=== PATIENT | female | born 1995 | race Two or more races ===

== ENCOUNTER 2024-03-15 12:22 | Inpatient (IN) | payer MEDICAID, SELFPAY ==
[2024-03-15] VITALS (16 sets, daily range): BP systolic 88–116; BP diastolic 48–73; PULSE 69–128; RESP 13–24; TEMP 36.6–38.8; O2SAT 97–100; BMI 22.6
--- NOTE | 2024-03-15 12:52 | XR_ITS ---
Examination: CT abdomen with intravenous contrast CT pelvis with intravenous contrast 2-D coronal reconstructions 2-D sagittal reconstructions Date and time of exam:March 15, 2024 1455 hours Comparison December 17, 2023 INDICATIONS: Lower abdominal pain with painful urination beginning 2 days ago. CTDI: vol (mGy) 5.92 DLP: (mGycm) 298 Technique: Multiple axial sections of the abdomen and pelvis have been obtained. 64 slice high-resolution scanner used. 3 mm axial sections have been obtained, post intravenous injection 60 cc [id number] 2-D sagittal, coronal reconstructions obtained. Low dose protocols were performed. One or more of the following dose reduction techniques were used; automated exposure control, adjustment of the mA and/or KV according to patient size, use of iterative reconstruction technique. Findings: No focal liver or splenic lesions No gallstones No pancreatic or adrenal mass No renal or ureteral calculi There is mild wall thickening involving the right renal collecting system and right ureter No bowel obstruction Normal appendix Anteverted uterus Hyperemia involving sigmoid colon and rectum Severe thickening of the urinary bladder wall with pronounced cystitis inflammation Osseous structures are intact IMPRESSION: Findings most consistent with right pyelonephritis and severe cystitis Nonspecific colitis involving sigmoid colon, proctitis pattern
[2024-03-15 13:15] LABS: Basophils % (Auto) 0 % (0-2.5); Eosinophils # (Auto) 0.1 Thou/mm3 (0.0-0.5); Eosinophils % (Auto) 0 % (0-10); Hematocrit 36.6 % (36.0-46.0); Immature Granulocytes % (Auto) 1 % (0-0); Immature Granulocytes Auto 0.06 Thou/mm3 (0.00-0.00); Lymphocytes # (Auto) 1.1 Thou/mm3 (1.0-4.8); Lymphocytes % (Auto) 8 % (10-50); Mean Corpuscular HGB Conc 32.8 g/dl (31.0-37.0); Mean Corpuscular Hemoglobin 28.5 pg (25.0-35.0); Mean Corpuscular Volume 87 fL (80-100); Monocytes # (Auto) 0.7 Thou/mm3 (0.0-0.8); Monocytes % (Auto) 5 % (0-12); Neutrophils # (Auto) 11.4 Thou/mm3 (1.8-7.7); Neutrophils % (Auto) 86 % (37-80); Nucleated Red Blood Cell % 0 /100 WBC (0); Platelet Count 395 Thou/mm3 (140-440); RDW Standard Deviation 50.2 fL (36.4-46.3); Red Blood Count 4.21 Miln/mm3 (4.00-5.20); White Blood Count 13.3 Thou/mm3 (3.6-11.0)
--- NOTE | 2024-03-15 13:17 | PD.EDRME ---
Rapid Medical Screening Exam RME Arrival date/time: 03/15/24 12:22 28-year-old female with history of ulcerative colitis presents emergency department complaint of dysuria and lower abdominal pain Chief Complaint: Urogenital-Female Time Seen by Provider: 03/15/24 12:39 Vital signs: Vital Signs Temperature 99.2 F 03/15/24 12:50 Pulse Rate 105 H 03/15/24 12:50 Respiratory Rate 16 03/15/24 12:50 Blood Pressure 106/73 03/15/24 12:50 Pulse Oximetry (%) 99 03/15/24 12:50 Oxygen Delivery Method Room Air 03/15/24 12:50
[2024-03-15 13:27] LABS: Collection Type, Urine Clean Catch; Squamous Epithelial Cell,Urine 0 /hpf (0-5)
[2024-03-15 13:34] LABS: Alanine Aminotransferase 15 U/L (10-49); Albumin, Serum 4.9 gm/dL (3.5-5.0); Albumin/Globulin Ratio 1.5 (1.2-2.2); Alkaline Phosphatase 68 U/L (46-116); Anion Gap 10 (7-16); Aspartate Amino Transferase 18 U/L (0-34); BUN/Creatinine Ratio 13 Ratio (12-20); Bilirubin,Total 0.3 mg/dL (0.3-1.2); Blood Urea Nitrogen 9 mg/dL (9-23); Calcium 9.5 mg/dL (8.3-10.6); Calcium (Corrected) 9.5 mg/dL (8.5-10.1); Carbon Dioxide 24.7 mMol/L (20.0-31.0); Chloride 103 mMol/L (98-107); Creatinine (Component) 0.7 mg/dL (0.6-1.3); Estimated Creatinine Clearance 81.6 mL/min (>60); Globulin 3.3 gm/dL (2.3-3.5); Glucose 116 mg/dL (74-106); Lipase 28 U/L (12-53); Osmolality,Calculated 275 (275-295); Potassium 3.9 mMol/L (3.4-5.1); Sodium 138 mMol/L (136-145); Total Protein 8.2 gm/dL (5.7-8.2); eGFR > 60 See Note
[2024-03-15 13:37] LABS: Lactate (Lactic Acid) 1.2 mMol/L (0.4-2.0)
[2024-03-15 13:48] LABS: HCG Qualitative,Urine Negative
[2024-03-15 13:54] LABS: Bilirubin,Urine Negative (Negative); Blood,Urine 3+ (Negative); Color,Urine Yellow (Lt Yel-Yel); Glucose, Urine Negative (Negative); Ketones,Urine Negative (Negative); Leukocyte Esterase,Urine Positive (Negative); Nitrite,Urine Positive (Negative); PH,Urine 6.5 (5.0-7.0); Protein,Urine 3+ (Neg - Trace); RBC,Urine 640 /hpf (0-3); Specific Gravity,Urine 1.026 (1.001-1.035); Urobilinogen,Urine Negative mg/dL (0.0-1.0); WBC,Urine 3228 /hpf (0-5)
[2024-03-15 13:55] LABS: Clarity,Urine Turbid (Clear/Hazy); Culture Indicated,Urine Yes
[2024-03-15 14:11] LABS: Procalcitonin 0.16 ng/ml (0.0-0.49)
--- NOTE | 2024-03-15 14:46 | PD.EDABDPN ---
ED Abdominal Pain RME/HPI General Chief Complaint: Urogenital-Female Stated complaint: pain, bladder infectionx 2 days Time seen by provider: 03/15/24 12:39 Arrival date/time: 03/15/24 12:22 RME / HPI RME / HPI narrative: 03/15/24 12:22 28-year-old female with history of ulcerative colitis presents emergency department complaint of dysuria and lower abdominal pain DR. AYERS MAIN ED EVALUATION: 28 year old female with history of ulcerative colitis presents to the ED for evaluation of abdominal pain beginning 2 days ago and progressively worsening. Reports the pain initially was located over pelvic area that migrated to the right lower quadrant. Described as a tearing sharp sensation, rating as severe. Accompanied by dysuria, urinary frequency, nausea, and chills. Denies any history of similar pain. Denies fevers, chills, sweats, back pain, vaginal bleeding, vaginal discharge, or hematuria. Patient mentioned in 2017 she underwent a colonoscopy and diagnosed with ulcerative colitis. States after colonoscopy developed an intra-abdominal abscess and underwent exploratory laparotomy with drainage. Patient currently followed by GI Dr. Spaulding and states through the years has also been diagnosed with Crohn's disease. Related Data Home Medications ?Medication ?Instructions ?Recorded ?Confirmed ferrous sulfate 325 mg (65 mg 1 tab PO BID 10/17/21 12/30/23 iron) tablet,delayed release Previous Rx's ?Medication ?Instructions ?Recorded famotidine 20 mg tablet 20 mg PO QDAY #14 tabs 12/21/23 Allergies Allergy/AdvReac Type Severity Reaction Status Date / Time No Known Allergies Allergy Verified 03/15/24 12:23 Review of Systems Review of Systems Narrative Review of Systems: Constitutional: SEE HPI +chills DENIES; Fevers Eyes: DENIES; Loss of vision Head/Ear/Nose: DENIES; Loss of hearing Throat: DENIES; Dysphagia Cardiovascular: DENIES; Chest pain, dyspnea or syncope Respiratory: DENIES; Shortness of breath Gastrointestinal: SEE HPI +abd pain. DENIES; Rectal bleeding or melena. Genitourinary: SEE HPI +urinary frequency, dysuria Musculoskeletal: DENIES; Arthralgia (pain in a joint),; Skin: DENIES; Rash Neurological: DENIES; Loss of function or movement Psychiatric: DENIES; recent major life stressor, emotional problem, illicit drug use or abuse Endocrinology: DENIES; Weight change Hematologic/Lymphatic: DENIES; Abnormal bruising Allergic/Immunologic: DENIES; Urticaria (hives) Past Medical History Past Medical History GASTROINTESTINAL: Positive Gastrointestinal Disorders, Gastrointestinal Bleed, Colitis, Ulcerative Colitis, Irritable Bowel and Crohn's Disease HEMATOLOGIC: Positive Anemia Family History FAMILY HISTORY: Positive Family Respiratory Disorders and Family Cancer Surgical History SURGICAL: Positive Abdominal Surgery and Bowel Surgery Social History SMOKING STATUS: Never smoker SUBSTANCE USE: does not use ED Exam Narrative Physical exam: Physical Exam: General: The vital signs were reviewed. The patient is non-toxic, in no apparent distress and appears healthy with a patent airway, no respiratory distress and has no apparent circulatory problems. Head & Scalp: Normocephalic, atraumatic. Face: Appears normal and is without lesions, deformity. Ears: Left external pinna appears normal. Right external pinna appears normal. Eyes: The sclera is anicteric. No obvious photophobia. The Left and Right Orbit/Lid/Conjunctiva appears normal without swelling, discoloration or injection. Nose: The nose is without deformity, discharge or tenderness; Throat: Appears normal. The mucous membranes are pink and moist without exudates, redness or mass seen. The tongue appears normal. Neck: The neck is supple and no apparent mass or adenopathy. Chest: The chest wall is normal in size and symmetry and has no chest wall tenderness or crepitus. The patient displays normal ventilator effort without retractions, accessory muscle use and has adequate air movement bilaterally with no wheezes and no rales. Cardiovascular: Regular rate and rhythm; No murmurs, rubs, or gallops; Gastrointestinal: The abdomen appears normal. Except midline and central somewhat hypertrophied scar from previous exploratory laparotomy No obvious hernias or mass. The abdomen is lower midline abdominal tenderness. The upper abdomen is soft and benign, non-distended, with no pain, no upper guarding and no rebound tenderness. Bowel sounds are present and normal sounding. No CVA tenderness. Genitourinary: Back/Spine: Nontender normal inspection Extremities/Musculoskeletal/lymphatic: The bilateral upper and lower extremities are warm. There is no evidence of arterial insufficiency. There is no evidence of venous insufficiency/edema. The patient spontaneously moves bilateral upper and lower extremities with no pain and no limitation of movement. There is no apparent, injury or trauma. Skin: The skin is warm, dry and intact. No rashes. No petechia. No purpura. No abnormal bruising. The color is appropriate with no cyanosis. Mental status/Psychiatric: Mental status is appropriate for age. The patient has no apparent delusions, visual hallucinations, no apparent audible hallucinations. The patient has no apparent suicidal thoughts/ideation and no apparent homicidal thoughts/ideation. Neurological: The patient is awake, alert, interactive, cordial, cooperative and is oriented to name and situation. The patient follows commands and answers historical question with no impairment. There is no visual disturbance apparent. The pupils are equal and reactive bilaterally with normal eye movements and no diplopia The bilateral upper and lower extremities have normal strength, normal range of motion and normal functioning. The gait, station and balance appear to be baseline with no acute change Course Quality Measures Current suspected stage: sepsis Possible source: genitourinary Blood cultures ordered: completed in ED Antibiotic ordered: Yes Pertinent labs: 03/15/24 13:33 Lactic Acid 1.2 mMol/L (0.4-2.0) Procalcitonin 0.16 ng/ml (0.0-0.49) sepsis Orders Category Date Time Status CT Screening NOW Care 03/15/24 12:[address] abdomen pelvis w con Stat Exams 03/15/24 12:52 Completed Blood Culture (Lab) Stat Lab 03/15/24 13:28 Received CBC Stat Lab 03/15/24 12:57 Completed Comprehensive Metabolic Panel Stat Lab 03/15/24 12:57 Completed HCG Qualitative,Urine Stat Lab 03/15/24 13:14 Completed Lactate (Lactic Acid) Stat Lab 03/15/24 13:33 Completed Lipase Stat Lab 03/15/24 12:57 Completed Procalcitonin Stat Lab 03/15/24 13:33 Completed UA, C/S IF [Urinalysis, C/S if Indicated] Stat Lab 03/15/24 13:14 Completed Urine Culture Stat Lab 03/15/24 13:14 Received Urine Culture Stat Lab 03/15/24 14:51 Received Acetaminophen Tab [Tylenol ES Tab] Med 03/15/24 16:19 Discontinued 1,000 mg PO X1 ONE Morphine Inj Med 03/15/24 16:19 Discontinued 4 mg IVP X1 ONE Ondansetron Inj [Zofran Inj] Med 03/15/24 16:21 Discontinued 4 mg .ROUTE .STK-MED ONE Ondansetron Inj [Zofran Inj] Med 03/15/24 16:19 Discontinued 4 mg IV X1 ONE Piper/Tazo 3.375 gm [Zosyn] Med 03/15/24 14:49 Discontinued 3.375 gm in 50 ml IV X1 Sodium Chloride 0.9% 1000 ml [Ns] 1,000 ml Med 03/15/24 14:49 Active IV 150 mls/hr Vital Signs Vital signs: Vital Signs Temperature 99.2 F 03/15/24 12:50 Pulse Rate 105 H 03/15/24 12:50 Respiratory Rate 16 03/15/24 12:50 Blood Pressure 106/73 03/15/24 12:50 Pulse Oximetry (%) 99 03/15/24 12:50 Oxygen Delivery Method Room Air 03/15/24 12:50 Pulse ox is 99% on room air which is adequate. Abdominal Pain MDM MDM Narrative MDM Narrative:: Patient presents with 2-day worsening of lower abdominal pain as a history of Crohn's disease with fistula who is tachycardic and has a fever of 100.4. The patient has concerns for abscess or other complications of her Crohn's disease and reveals an obvious urinary tract infection and CT is pending to rule out any abscesses since she does have known fistulous. Because of the intra-abdominal infection possibility having her started on Zosyn first which will also cover the urinary tract infection. Going to start her on Zosyn and IV fluids. Medical workup came back positive for a urine infection and CT scan revealed no evidence of abscess or fistula and if her she has acute pyelonephritis and she does have right CVA tenderness on reevaluation. Because her heart rate was 131 she is having some nausea and systemic signs of infection felt her best to be admitted hydrate and observe overnight. Hospitalist was called and they agreed to admit. Patient data External records reviewed:: [facility] previous records (I reviewed admission from 12/18/2023 through 12/21/2023 ) Clinical information provided by:: patient Social determinants that could affect healthcare access:: none Patient has the following chronic illnesses:: ulcerative colitis, crohn's disease How is presenting disease/condition affected by chronic disease/condition?: exacerbated by Evaluation data The following diagnostics were reviewed and interpreted by me:: lab results and radiology exam(s) Lab and/or radiology exams considered but not ordered:: None Interpretation Summary: Ordering Physician: Neha STAHL)Yohan NP Date of Service: 03/15/24 Procedure(s): CT abdomen pelvis w con Accession Number(s): [id number] cc: Neha STAHL),Yohan SALMON; Skyler Palma MD~ Examination: CT abdomen with intravenous contrast CT pelvis with intravenous contrast 2-D coronal reconstructions 2-D sagittal reconstructions Date and time of exam:March 15, 2024 1455 hours Comparison December 17, 2023 INDICATIONS: Lower abdominal pain with painful urination beginning 2 days ago. CTDI: vol (mGy) 5.92 DLP: (mGycm) 298 Technique: Multiple axial sections of the abdomen and pelvis have been obtained. 64 slice high-resolution scanner used. 3 mm axial sections have been obtained, post intravenous injection 60 cc [id number] 2-D sagittal, coronal reconstructions obtained. Low dose protocols were performed. One or more of the following dose reduction techniques were used; automated exposure control, adjustment of the mA and/or KV according to patient size, use of iterative reconstruction technique. Findings: No focal liver or splenic lesions No gallstones No pancreatic or adrenal mass No renal or ureteral calculi There is mild wall thickening involving the right renal collecting system and right ureter No bowel obstruction Normal appendix Anteverted uterus Hyperemia involving sigmoid colon and rectum Severe thickening of the urinary bladder wall with pronounced cystitis inflammation Osseous structures are intact IMPRESSION: Findings most consistent with right pyelonephritis and severe cystitis Nonspecific colitis involving sigmoid colon, proctitis pattern Dictated By: Skyler Palma MD Signed By: <Electronically signed by Skyler Palma MD in OV> 03/15/24 1520 Medications / Prescriptions Medications or Prescriptions considered but not ordered:: None Medication administrations:: Medication Administration History Sodium Chloride (Ns) 1,000 mls @ 150 mls/hr IV .Q6H40M ONE Stop: 03/15/24 21:28 Last Admin: 03/15/24 15:28 Dose: 150 mls/hr Documented By: KASSIDY Discontinued Medications Acetaminophen (Acetaminophen 500 Mg Tablet) 1,000 mg PO X1 ONE Stop: 03/15/24 16:20 Last Admin: 03/15/24 16:32 Dose: 1,000 mg Documented By: KASSIDY Piperacillin/Tazobactam/Dextrose (Zosyn) 3.375 gm in 50 mls @ 100 mls/hr IV X1 ONE Stop: 03/15/24 15:18 Last Infusion: 03/15/24 16:12 Dose: Infused Documented By: Admin: 03/15/24 15:28 Dose: 100 mls/hr Documented By: KASSIDY Morphine Sulfate (Morphine Sulf Inj 10 Mg/Ml Vial) 4 mg IVP X1 ONE Stop: 03/15/24 16:20 Last Admin: 03/15/24 16:32 Dose: 4 mg Documented By: KASSIDY Ondansetron HCl (Ondansetron Inj 2 Mg/Ml Inj 2 Ml) 4 mg IV X1 ONE; Protocol Stop: 03/15/24 16:20 Last Admin: 03/15/24 16:28 Dose: 4 mg Documented By: KASSIDY Ondansetron HCl (Ondansetron Inj 2 Mg/Ml Inj 2 Ml) Confirm Administered Dose 4 mg .ROUTE .STK-MED ONE Stop: 03/15/24 16:22 Last Admin: 03/15/24 16:36 Dose: Not Given Documented By: KASSIDY Non-Admin Reason: Duplicate Medication on eMAR See above Consultations Consultation(s) initiated? (list below): Yes Consultation #1 (Physician, Specialty, Details): I spoke with hospitalist Dr. Gonzalez. Discussed patients PMHx, HPI, ED course, exam findings, labs, and radiology results. The hospitalist agree to accept the patient for admission. Time: 16:37 Diagnosis Differential diagnosis abdominal pain: abdominal pain, acute appendicitis, calculus of kidney, constipation, diverticulitis, gastroenteritis and pancreatitis Most likely diagnosis given after review of the tests above:: Lower abdominal pain Urinary tract infection Acute Crohn's disease with fistula Admission Indicated Admission indicated?: indicated Admission Request Was there a request for admission?: Yes Admission Attestation Admission request attestation: Discussed case with [] from Hospitalist service regarding admission. Discussed patients ED course, exam findings, labs, and radiology results. The Hospitalist [agrees,declines] to accept the patient for admission. Disposition Plan Disposition Plan: Admit Discharge Plan Plan Patient Disposition: Admit Acute Care w/in Hospital Disposition Comment: Hospitalist admit Prescriptions/Referrals Prescriptions/Med Rec: No Action ferrous sulfate 325 mg (65 mg iron) tablet,delayed release (DR/EC) 1 tab PO BID Patient Comments: TAKE 1 TABLET BY MOUTH TWICE A DAY FOR 90 DAYS famotidine 20 mg tablet 20 mg PO QDAY Qty: 14 0RF Problem List Clinical Impression: Acute pyelonephritis, Lower abdominal pain, Urinary tract infection, Acute Crohn's disease with fistula, Sinus tachycardia Patient/Caregiver Discharge Instructions Print Language: Malian Stand Alone Forms: [facility] Award Info., Patient Portal Info Letter
[2024-03-15] MEDS: PIPER/TAZO 3.375 GM 3.375 GM/50 ML BAG IV (15:28)
[2024-03-15] MEDS: SODIUM CHLORIDE 0.9% 1000 ML 1,000 ML 150 ML IV (15:28)
[2024-03-15] MEDS: ONDANSETRON INJ 2 MG/ML INJ 2 ML 4 MG IV (16:28)
[2024-03-15] MEDS: ACETAMINOPHEN 500 MG TABLET 1000 MG PO (16:32)
[2024-03-15] MEDS: MORPHINE SULF INJ 10 MG/ML VIAL 4 MG IVP (16:32)
[2024-03-15] MEDS: RINGERS LACTATED 1000 ML 1,000 ML 999 ML IV (19:05)
[2024-03-15] MEDS: cefTRIAXone/D5w 1gm IV premix 50 ML IV (19:05)
--- NOTE | 2024-03-15 19:44 | PD.RESHP ---
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 She reported fever that was subjective, mild chills, and nausea. However, she denied any lightheadedness, headache, chest pain, short throat, SOB, any changes in bowel movement. In the ED, her vitals were significant for pulse 105, saturating 99% on room air. Labs were significant for white count 13.3, blood sugar 116 with UA revealing turbid urine, protein 3+, blood 3+, nitrate positive, leukocyte Estrace positive, RBC [address] abdomen/pelvis was significant for right pyelonephritis and severe cystitis. Patient received 1 L of IV bolus fluid, Zosyn, Tylenol thousand Mg, and underwent center on 4 Mg IV x 1 and was admitted to MedSurg unit for further management of complicated UTI. PMH: As mentioned above PSHX: As mentioned above Allergies: No known allergies Social history: Denies alcohol, illicit drug use or smoking Medications: To be reconciled Review of Systems Review of Systems Systems Reviewed: All systems reviewed, normal except as documented Exam Vital Signs Temp Pulse Resp BP Pulse Ox O2 Del Method 99.3 F 128 H 18 116/70 99 Room Air 03/15/24 18:02 03/15/24 16:00 03/15/24 16:00 03/15/24 16:00 03/15/24 16:00 03/15/24 16:00 Narrative Exam General: Young, cooperative no acute distress, Alert and Oriented x 3 HEENT: Mildly dry mucous membranes, oropharynx clear Neck: Supple, No masses, No JVD CVS: S1S2 Regular rate and rhythm, No murmurs, rubs or gallops Lungs: Clear to auscultation with no accessory use, no wheeze no rhonchi Abd: Soft, mild suprapubic tenderness/ND, +BS, no organomegaly, right costorenal angle tenderness present Ext: No edema, warm and well perfused Skin: No rash Psych: Appropriate mood and affect Results: Labs 03/16/24 04:40 03/16/24 04:40 Labs: Short CBC 03/15/24 Range/Units 12:57 WBC 13.3 H (3.6-11.0) Thou/mm3 Hgb 12.0 (12.0-16.0) g/dL Hct 36.6 (36.0-46.0) % Plt Count 395 (140-440) Thou/mm3 BMP 03/15/24 12:57 Sodium 138 Potassium 3.9 Chloride 103 Carbon Dioxide 24.7 BUN 9 Creatinine 0.7 Glucose 116 H Calcium 9.5 Liver Function 03/15/24 Range/Units 12:57 Total Bilirubin 0.3 (0.3-1.2) mg/dL AST 18 (0-34) U/L ALT 15 (10-49) U/L Alkaline Phosphatase 68 (46-116) U/L Albumin 4.9 (3.5-5.0) gm/dL Urine 03/15/24 Range/Units 13:14 Urine Color Yellow (Lt Yel-Yel) Urine Clarity Turbid A (Clear/Hazy) Urine pH 6.5 (5.0-7.0) Ur Specific Mercedes 1.026 (1.001-1.035) Urine Protein 3+ A (Neg - Trace) Urine Glucose (UA) Negative (Negative) Quality Measures Quality Measures sepsis Current suspected stage: ruled out Possible source: genitourinary Blood cultures ordered: completed in ED Antibiotic ordered: Yes Medications Home Medications and Allergies Home Medications ?Medication ?Instructions ?Recorded ?Confirmed ?Type ferrous sulfate 325 mg (65 mg 1 tab PO BID 10/17/21 12/30/23 History iron) tablet,delayed release Allergies Allergy/AdvReac Type Severity Reaction Status Date / Time No Known Allergies Allergy Verified 03/15/24 12:23 Visit Medications Acetaminophen (Acetaminophen 325 Mg Tablet) 650 mg PO Q6H PRN PRN Reason: Fever >101.5 Stop: 04/14/24 18:11 Hydrocodone Bitart/Acetaminophen (Hydrocodone/Apap 5/325 Tablet) 1 tab PO Q4HR PRN PRN Reason: PAIN SCALE 4-6 (Moderate Stop: 03/20/24 18:11 Enoxaparin Sodium (Enoxaparin Sod Inj 40 Mg/0.4 Ml Syringe) 40 mg SC QDAY [facility] Stop: 03/30/24 08:59 Sodium Chloride (Ns) 1,000 mls @ 150 mls/hr IV .Q6H40M ONE Stop: 03/15/24 21:28 Last Admin: 03/15/24 15:28 Dose: 150 mls/hr Ceftriaxone Sodium/Dextrose (Rocephin/D5w 1gm Iv Premix) 50 mls @ 100 mls/hr IV QDAY@1830 [place] Stop: 03/22/24 18:29 Last Admin: 03/15/24 19:05 Dose: 100 mls/hr Ondansetron HCl (Ondansetron Inj 2 Mg/Ml Inj 2 Ml) 4 mg IV Q6H PRN; Protocol PRN Reason: NAUSEA OR VOMITING Stop: 04/14/24 18:11 Discontinued Medications Acetaminophen (Acetaminophen 500 Mg Tablet) 1,000 mg PO X1 ONE Stop: 03/15/24 16:20 Last Admin: 03/15/24 16:32 Dose: 1,000 mg Piperacillin/Tazobactam/Dextrose (Zosyn) 3.375 gm in 50 mls @ 100 mls/hr IV X1 ONE Stop: 03/15/24 15:18 Last Infusion: 03/15/24 16:12 Dose: Infused Lactated Ringer's (Lactated Ringers) 1,000 mls @ 999 mls/hr IV .Q1H1M ONE Stop: 03/15/24 19:19 Last Admin: 03/15/24 19:05 Dose: 999 mls/hr Morphine Sulfate (Morphine Sulf Inj 10 Mg/Ml Vial) 4 mg IVP X1 ONE Stop: 03/15/24 16:20 Last Admin: 03/15/24 16:32 Dose: 4 mg Ondansetron HCl (Ondansetron Inj 2 Mg/Ml Inj 2 Ml) 4 mg IV X1 ONE; Protocol Stop: 03/15/24 16:20 Last Admin: 03/15/24 16:28 Dose: 4 mg Assessment & Plan Plan Patient is a 28-year-old female with significant past medical history of IBS, 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 #Complicated UTI/right pyelonephritis The patient presented with chief complaint of suprapubic pain, burning and frequent urination for past 1 day, associated with subjective fever, mild chills and nausea. UA revealing turbid urine, protein 3+, blood 3+, nitrate positive, leukocyte Estrace positive, RBC [address] abdomen/pelvis was significant for right pyelonephritis and severe cystitis -Started on ceftriaxone 1 g daily, previous urine cultures were pansensitive, with positive sensitivity with ceftriaxone -Urine culture ordered -Oral hydration -Pain medications as appropriate #Crohn's disease #History of IBS Patient is not aware of what medicines he is taking currently -We will reconcile home medications #Coccidiomycosis serology positive The patient serology was positive for coccidiomycosis on 12/19/2023 -Reconcile home medications #History of iron deficiency anemia -We will consider starting the patient on oral iron Health maintenance: Dispo: Patient admitted to MedSurg unit for further management of complicated UTI/right pyelonephritis DVT prophylaxis: Lovenox Diet: Regular diet CODE STATUS: Full code The patient's management plan was discussed with my attending physician MD Karlo Amaya MD, PGY2 Attending Provider Attestation/Addendum 28-year-old female with irritable bowel syndrome, Crohn's disease, iron deficiency anemia was admitted for pyelonephrits. Patient has flank pain abnormal urinalysis and abnormal CT scan findings suggestive of pyelonephritis. Patient will receive IV antibiotic treatment Follow culture results. Discussed with housestaff.
[2024-03-16] VITALS (12 sets, daily range): BP systolic 85–103; BP diastolic 54–64; PULSE 60–92; RESP 14–24; TEMP 36.3–37.2; O2SAT 95–100; BMI 23.1
[2024-03-16] MEDS: HYDROcodone/APAP 5/325 TABLET 1 TAB PO ×2 (03:44→22:11)
[2024-03-16 05:28] LABS: Basophils # (Auto) 0.1 Thou/mm3 (0.0-0.2); Basophils % (Auto) 1 % (0-2.5); Eosinophils # (Auto) 0.1 Thou/mm3 (0.0-0.5); Eosinophils % (Auto) 1 % (0-10); Hematocrit 30.4 % (36.0-46.0); Hemoglobin 10.1 g/dL (12.0-16.0); Immature Granulocytes % (Auto) 0 % (0-0); Immature Granulocytes Auto 0.02 Thou/mm3 (0.00-0.00); Lymphocytes # (Auto) 1.3 Thou/mm3 (1.0-4.8); Lymphocytes % (Auto) 13 % (10-50); Mean Corpuscular HGB Conc 33.2 g/dl (31.0-37.0); Mean Corpuscular Hemoglobin 28.9 pg (25.0-35.0); Mean Corpuscular Volume 87 fL (80-100); Monocytes # (Auto) 0.8 Thou/mm3 (0.0-0.8); Monocytes % (Auto) 8 % (0-12); Neutrophils # (Auto) 8.4 Thou/mm3 (1.8-7.7); Neutrophils % (Auto) 79 % (37-80); Nucleated Red Blood Cell % 0 /100 WBC (0); Platelet Count 338 Thou/mm3 (140-440); White Blood Count 10.7 Thou/mm3 (3.6-11.0)
[2024-03-16 05:54] LABS: Anion Gap 9 (7-16); BUN/Creatinine Ratio 10 Ratio (12-20); Blood Urea Nitrogen < 5 mg/dL (9-23); Calcium 8.6 mg/dL (8.3-10.6); Carbon Dioxide 23.5 mMol/L (20.0-31.0); Cardiac Risk Estimate 2.5 RATIO (3.7-5.6); Chloride 105 mMol/L (98-107); Cholesterol 117 mg/dL (132-200); Creatinine (Component) 0.5 mg/dL (0.6-1.3); Estimated Creatinine Clearance 114.2 mL/min (>60); Glucose 103 mg/dL (74-106); HDL Cholesterol 47 mg/dL (40-60); LDL Cholesterol,Calculated 50 mg/dL (0-130); Magnesium 1.8 mg/dL (1.6-2.6); Osmolality,Calculated 271 (275-295); Phosphorous 3.1 mg/dL (2.4-5.1); Potassium 3.5 mMol/L (3.4-5.1); Sodium 137 mMol/L (136-145); Thyroid Stimulating Hormone 0.68 uIU/mL (0.55-4.78); Triglycerides 98 mg/dL (30-150); eGFR > 60 See Note
--- NOTE | 2024-03-16 08:00 | PC.NURSE ---
FOOD TRAY AT BEDSIDE
--- NOTE | 2024-03-16 10:43 | PC.NURSE ---
REPORT GIVEN TO GARY ON MED/SURG FLOOR. PT TO GO TO ROOM 311
--- NOTE | 2024-03-16 11:15 | ESPR_ITS ---
Documentation for date of: 03/16/24 Subjective Subjective Interval history: Patient was seen at bedside this morning. No overnight events. Patient did have a fever yesterday around 4 PM, and since has not had any other fevers. WBCs have down trended. Urine cultures are still pending. Will continue with ceftriaxone for now. Exam Vital Signs Temp Pulse Resp BP Pulse Ox O2 Del Method 98.6 F 90 18 95/54 L 98 Room Air 03/16/24 10:15 03/16/24 10:15 03/16/24 10:15 03/16/24 10:15 03/16/24 10:15 03/16/24 10:15 Narrative Exam General: A/O x3, no acute distress, well-nourished, well-developed Eyes: PERRL, EOMI. Anicteric, vision grossly intact. Ears: No ear pain, no ear discharge, Hearing grossly intact. Nose: No nasal discharge. Mouth/Throat: Moist mucous membranes, no redness, no lesions. Neck: Neck supple, non-tender, no cervical lymphadenopathy. Lungs: Clear OLIVIA to auscultation and percussion, No accessory muscle use. Cardio: Normal S1/S2, regular rhythm, no murmurs, no JVD Abdomen: Soft, mildly tender in lower abdomen, no palpable masses, peristalsis present, no guarding or rebound. Extremities: Symmetrical, no significant deformities, no peripheral edema , non-tender, peripheral pulses presents. Skin: No rashes, no lesions, warm to touch. Neuro: No focal neurological deficits. Psych: Cooperative, appropriate mood and effect. Objective Labs 03/16/24 04:40 03/16/24 04:40 Labs: Laboratory Results - last 24 hr 03/15/24 03/15/24 03/15/24 12:57 13:14 13:33 WBC 13.3 H RBC 4.21 Hgb 12.0 Hct 36.6 MCV 87 MCH 28.5 MCHC 32.8 RDW Std Deviation 50.2 H Plt Count 395 Neut % (Auto) 86 H Lymph % (Auto) 8 L [place] % (Auto) 5 Eos % (Auto) 0 Baso % (Auto) 0 Neut # (Auto) 11.4 H Lymph # (Auto) 1.1 [place] # (Auto) 0.7 Eos # (Auto) 0.1 Baso # (Auto) 0.0 Immature Gran # (Auto) 0.06 H Absolute Nucleated RBC 0.00 Immature Gran % 1 H Nucleated RBC % 0 Sodium 138 Potassium 3.9 Chloride 103 Carbon Dioxide 24.7 Anion Gap 10 BUN 9 Creatinine 0.7 Estim Creat Clear Calc 81.6 eGFR > 60 BUN/Creatinine Ratio 13 Glucose 116 H Calculated Osmolality 275 Lactic Acid 1.2 Calcium 9.5 Corrected Calcium 9.5 Phosphorus Magnesium Total Bilirubin 0.3 AST 18 ALT 15 Alkaline Phosphatase 68 Total Protein 8.2 Albumin 4.9 Globulin 3.3 Albumin/Globulin Ratio 1.5 Triglycerides Cholesterol LDL Cholesterol, Calc HDL Cholesterol Cholesterol/HDL Ratio Lipase 28 Procalcitonin 0.16 TSH Ur Collection Type Clean Catch Urine Color Yellow Urine Clarity Turbid A Urine pH 6.5 Ur Specific [place] 1.026 Urine Protein 3+ A Urine Glucose (UA) Negative Urine Ketones Negative Urine Blood 3+ A Urine Nitrite Positive Urine Bilirubin Negative Urine Urobilinogen (Auto) Negative Ur Leukocyte Esterase Positive Urine RBC 640 H Urine WBC 3228 H Ur Squamous Epith Cells 0 Urine Bacteria None Ur Culture Indicated? Yes Urine HCG, Qual Negative 03/16/24 04:40 WBC 10.7 RBC 3.50 L Hgb 10.1 L Hct 30.4 L MCV 87 MCH 28.9 MCHC 33.2 RDW Std Deviation 51.0 H Plt Count 338 D Neut % (Auto) 79 Lymph % (Auto) 13 [place] % (Auto) 8 Eos % (Auto) 1 Baso % (Auto) 1 Neut # (Auto) 8.4 H Lymph # (Auto) 1.3 [place] # (Auto) 0.8 Eos # (Auto) 0.1 Baso # (Auto) 0.1 Immature Gran # (Auto) 0.02 H Absolute Nucleated RBC 0.00 Immature Gran % 0 Nucleated RBC % 0 Sodium 137 Potassium 3.5 Chloride 105 Carbon Dioxide 23.5 Anion Gap 9 BUN < 5 L Creatinine 0.5 L Estim Creat Clear Calc 114.2 eGFR > 60 BUN/Creatinine Ratio 10 L Glucose 103 Calculated Osmolality 271 L Lactic Acid Calcium 8.6 Corrected Calcium Phosphorus 3.1 Magnesium 1.8 Total Bilirubin AST ALT Alkaline Phosphatase Total Protein Albumin Globulin Albumin/Globulin Ratio Triglycerides 98 Cholesterol 117 L LDL Cholesterol, Calc 50 HDL Cholesterol 47 Cholesterol/HDL Ratio 2.5 L Lipase Procalcitonin TSH 0.68 Ur Collection Type Urine Color Urine Clarity Urine pH Ur Specific [place] Urine Protein Urine Glucose (UA) Urine Ketones Urine Blood Urine Nitrite Urine Bilirubin Urine Urobilinogen (Auto) Ur Leukocyte Esterase Urine RBC Urine WBC Ur Squamous Epith Cells Urine Bacteria Ur Culture Indicated? Urine HCG, Qual Quality Measures Quality Measures sepsis Current suspected stage: ruled out Possible source: genitourinary Blood cultures ordered: completed in ED Antibiotic ordered: Yes Assessment & Plan Assessment Current Active Medications: Generic Name Dose Route Start Last Admin Trade Name Freq PRN Reason Stop Dose Admin Acetaminophen 650 mg 03/15/24 18:12 Acetaminophen 325 Mg Tablet PO 04/14/24 18:11 Q6H PRN Fever >101.5 Hydrocodone Bitart/Acetaminophen 1 tab 03/15/24 18:12 03/16/24 03:44 Hydrocodone/Apap 5/325 Tablet PO 03/20/24 18:11 1 tab Q4HR PRN Administration PAIN SCALE 4-6 (Moderate Enoxaparin Sodium 40 mg 03/16/24 09:00 03/16/24 09:45 Enoxaparin Sod Inj 40 Mg/0.4 Ml Syringe SC 03/30/24 08:59 Not Given QDAY GARFIELD Ceftriaxone Sodium/Dextrose 50 mls @ 100 mls/hr 03/15/24 18:30 03/15/24 19:49 Rocephin/D5w 1gm Iv Premix IV 03/22/24 18:29 Infused QDAY@1830 GARFIELD Infusion Ondansetron HCl 4 mg 03/15/24 18:12 Ondansetron Inj 2 Mg/Ml Inj 2 Ml IV 04/14/24 18:11 Q6H PRN NAUSEA OR VOMITING Protocol Plan 28-year-old female with past medical history of Crohn's disease with fistula, coccidiomycosis, iron deficiency anemia, and intra-abdominal abscess s/p laparotomy and drainage was admitted to the hospital on 03/15/2024 due to complicated UTI and right pyelonephritis. #Right pyelonephritis #Complicated UTI #Cystitis ? Patient came in with suprapubic pain, burning sensation with urination and increased urination since 1 day prior to admission ? UA was positive for leukocytes esterase and nitrates, but negative for bacteria ? Blood cultures negative in 24 hours Plan: ? Continue Rocephin 1 g daily [03/15/2024?] ? Pending blood cultures and urine cultures ? Will continue to monitor #Crohn's disease ? Patient takes mesalamine at home ? Will restart mesalamine #Hx of iron deficiency anemia ?patient hemoglobin 10.1 today from 12 on admission ?Most likely hemodilution orally as patient got 2 L of fluid yesterday Plan: ? Will check for hemoglobin less than 7 ? Will continue to monitor Disposition: Patient seen in med surg, pending Urine cx. Continue Rocephin. Diet: regular GI prophylaxis: not indicated DVT prophylaxis: lovenox Code: Full Case disclosed with Attending Dr. Bobo and My senior Dr. Chirinos PGY2. Ino Pleitez PGY1 Senior Resident Attestation The patient is a 28-year-old female with significant past medical history of Crohn's disease with fistula, coccidiomycosis, iron deficiency anemia, and intra-abdominal abscess s/p laparotomy and redness was admitted to hospital on 03/15/2021 with complaint of suprapubic pain, nausea and burning micturition and frequency was found to have complicated UTI/. The patient reported doing well this morning. She reported her suprapubic pain has gone down, and her urinary frequency and burning has improved. She had 1 episode of fever yesterday around 4 PM. Her vitals were fairly stable with stable labs. Will continue the patient on Rocephin 1 g daily, continue to follow-up on urine culture. Blood culture has been so far negative for 24 hours. I discussed with and supervised the director internal communications physician involved in the care of this patient. I personally saw and examined the patient and discussed the assessment and plan with the entire medicine team, including my attending. I agree with the assessment and plan as documented above. Karlo Chirinos MD PGY2 Internal Medicine Attending Provider Attestation/Addendum 28-year-old female who was admitted for pyelonephritis. Patient had febrile episodes. She will continue IV antibiotic treatment. Check urine and blood culture results.
[2024-03-16] MEDS: cefTRIAXone/D5w 1gm IV premix 50 ML IV (17:38)
[2024-03-16] MEDS: MESALAMINE 400 MG CAPSULE.DR 1200 MG PO (20:06)
[2024-03-17] VITALS: BP 93/59; PULSE 65; RESP 18; TEMP 36.2; O2SAT 98
[2024-03-17 04:00] VITALS: BP 90/62; PULSE 60; RESP 18; TEMP 36.3; O2SAT 99
[2024-03-17 06:05] LABS: Basophils # (Auto) 0.1 Thou/mm3 (0.0-0.2); Basophils % (Auto) 1 % (0-2.5); Eosinophils # (Auto) 0.3 Thou/mm3 (0.0-0.5); Eosinophils % (Auto) 4 % (0-10); Hematocrit 33.1 % (36.0-46.0); Hemoglobin 10.8 g/dL (12.0-16.0); Immature Granulocytes % (Auto) 0 % (0-0); Immature Granulocytes Auto 0.03 Thou/mm3 (0.00-0.00); Lymphocytes # (Auto) 1.6 Thou/mm3 (1.0-4.8); Lymphocytes % (Auto) 22 % (10-50); Mean Corpuscular HGB Conc 32.6 g/dl (31.0-37.0); Mean Corpuscular Hemoglobin 28.8 pg (25.0-35.0); Mean Corpuscular Volume 88 fL (80-100); Monocytes # (Auto) 0.6 Thou/mm3 (0.0-0.8); Monocytes % (Auto) 9 % (0-12); Neutrophils # (Auto) 4.6 Thou/mm3 (1.8-7.7); Neutrophils % (Auto) 64 % (37-80); Nucleated Red Blood Cell % 0 /100 WBC (0); Platelet Count 264 Thou/mm3 (140-440); RDW Standard Deviation 50.3 fL (36.4-46.3); Red Blood Count 3.75 Miln/mm3 (4.00-5.20); White Blood Count 7.2 Thou/mm3 (3.6-11.0)
[2024-03-17] MEDS: CIPROFLOXACIN/D5w 400 MG IVPB 400 MG/200 ML BAG 200 MG IV (06:44)
[2024-03-17 06:58] LABS: Anion Gap 10 (7-16); BUN/Creatinine Ratio 7 Ratio (12-20); Blood Urea Nitrogen 5 mg/dL (9-23); Carbon Dioxide 21.9 mMol/L (20.0-31.0); Chloride 105 mMol/L (98-107); Creatinine (Component) 0.7 mg/dL (0.6-1.3); Estimated Creatinine Clearance 88.2 mL/min (>60); Glucose 77 mg/dL (74-106); Magnesium 2.2 mg/dL (1.6-2.6); Osmolality,Calculated 270 (275-295); Phosphorous 4.7 mg/dL (2.4-5.1); Potassium 4.4 mMol/L (3.4-5.1); Sodium 137 mMol/L (136-145); eGFR > 60 See Note
--- NOTE | 2024-03-17 07:19 | PC.NURSE ---
Patient started c/o of localized itching to left forearm. On assessment, arm was swollen and red. Donor denies SOB or any other symptoms. Dr. Goodman notified. to place orders.
[2024-03-17] MEDS: DiphenhydrAMINE 25 MG CAPSULE PO (07:26)
[2024-03-17 07:32] VITALS: BP 90/53; PULSE 67; RESP 16; TEMP 36.2; O2SAT 99
[2024-03-17] MEDS: ENOXAPARIN SOD INJ 40 MG/0.4 ML SYRINGE SC (09:02)
[2024-03-17] MEDS: ceFAZolin/D5W 1 GM IVPB 1 GM/50 ML BAG IV (09:02)
[2024-03-17] MEDS: MESALAMINE 400 MG CAPSULE.DR 1200 MG PO (09:30)
[2024-03-17] MEDS: TRIMETHOPRIM/SULFA 160/800 DS TABLET 1 TAB PO (10:55)
[2024-03-17 11:39] VITALS: BP 89/59; PULSE 90; RESP 17; TEMP 36.6; O2SAT 98
--- NOTE | 2024-03-17 14:29 | ESDS_ITS ---
Planned Discharge Date 03/17/24 DS: Providers Provider Date of admission: 03/15/24 18:12 Primary care physician: Lynda Hernandez PA-C Admitting Provider: Ran Bobo MD Attending Provider on Admission: Ran Bobo MD Attending Provider on DC: Kurt Mcclellan MD Discharging Provider: Kurt Mcclellan MD DS: Diagnosis Problem List Completed Was Problem List Reviewed/Reconciled?: Yes Hospital Course Hospital Course Hospital course: 28-year-old female with past medical history of Crohn's disease with fistula, coccidiomycosis, iron deficiency anemia, and intra-abdominal abscess s/p laparotomy and drainage was admitted to the hospital on 03/15/2024 due to complicated UTI and right pyelonephritis. In the ED patient came in with complaints of abdominal pain as well as dysuria and increased urinary frequency. Initially patient was afebrile and mildly tachycardic. Initial labs were relevant for mild leukocytosis (13.3), and UA was positive for leukocytes esterase and nitrates. Initial imaging included abdomen/pelvis CT which showed right pyelonephritis with severe cystitis. During the patient's hospital stay she was treated with Rocephin until patient's urine cultures came back positive for Proteus Mirabilis which was resistant to Rocephin and patient was given 1 dose of ciprofloxacin, but she had rash develop therefore ciprofloxacin was discontinued and she was given 1 dose of Benadryl. Patient was then placed on Ancef for antibiotic coverage. Patient remained stable without any other fevers and improvement of WBC which are downtrending. Patient blood cultures were negative. At the time of discharge patient was stable enough to be discharged home. Discharge plan: Please follow-up with your primary care physician within 1 week of discharge You have been started on Bactrim for UTI Continue taking all home medications as prescribed Please come back to the ER if symptoms persist or worsen Problems: #Right pyelonephritis #Complicated UTI, Proteus Mirabillis #Cystitis #Crohn's disease #Hx of iron deficiency anemia Case disclosed with Attending Dr. Mcclellan and My senior Dr. Chirinos PGY2. Ino Pleitez PGY1 Senior Resident Attestation: I discussed with and supervised the gallery intern physician involved in the care of this patient. I personally saw and examined the patient and discussed the assessment and plan with the entire medicine team, including my attending. I agree with the discharge plan as documented above. Karlo Chirinos MD PGY2 Internal Medicine Status at Discharge Overall status at discharge: patient is progressing back to baseline Time Spent with Patient Time attestation: Total time spent providing and/or coordinating discharge services:>35 min Exam Vital Signs Temp Pulse Resp BP Pulse Ox O2 Del Method 97.8 F 90 17 89/59 L 98 Room Air 03/17/24 11:39 03/17/24 11:39 03/17/24 11:39 03/17/24 11:39 03/17/24 11:39 03/17/24 11:39 Narrative Exam General: A/O x3, no acute distress, well-nourished, well-developed Eyes: PERRL, EOMI. Anicteric, vision grossly intact. Ears: No ear pain, no ear discharge, Hearing grossly intact. Nose: No nasal discharge. Mouth/Throat: Moist mucous membranes, no redness, no lesions. Neck: Neck supple, non-tender, no cervical lymphadenopathy. Lungs: Clear OLIVIA to auscultation and percussion, No accessory muscle use. Cardio: Normal S1/S2, regular rhythm, no murmurs, no JVD Abdomen: Soft, mildly tender in lower abdomen improving, no palpable masses, peristalsis present, no guarding or rebound. Extremities: Symmetrical, no significant deformities, no peripheral edema , non-tender, peripheral pulses presents. Skin: No rashes, no lesions, warm to touch. Neuro: No focal neurological deficits. Psych: Cooperative, appropriate mood and effect. 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 You have been started on Bactrim twice daily for UTI Continue taking all home medications as prescribed Please come back to the ER if symptoms persist or worsen Prescriptions/Referrals Prescriptions/Med Rec: New sulfamethoxazole-trimethoprim [Bactrim DS] 800-160 mg tablet 1 tab PO BID Qty: 14 0RF Continued ferrous sulfate 325 mg (65 mg iron) tablet,delayed release (DR/EC) 1 tab PO BID Patient Comments: TAKE 1 TABLET BY MOUTH TWICE A DAY FOR 90 DAYS mesalamine 1.2 gram tablet,delayed release (DR/EC) 1.2 g PO BID Patient Comments: TAKE 1 TABLET BY MOUTH TWICE A DAY FOR 8 WEEKS Referrals: Lynda Hernandez PA-C [Primary Care Provider] - Patient/Caregiver Discharge Instructions Discharge Activity: activity as tolerated Education Materials: What Is Crohn's Disease, Urinary Tract Infections in Women, Understanding Urinary Tract ..., Understanding the Pain Response, Kidney Infec Dc, Crohn Disease Lifestyle Manage, Managing Crohn's Disease: Medicines Print Language: Divehi Stand Alone Forms: [facility] Award Info., Patient Portal Info Letter Discharge Order Discharge Orders: Discharge (Routine); Ordered 03/17/24 Ordered By: Karlo Chirinos Quality Discharge Quality Measures VTE prophylaxis MD Attestestation MD Attestation Face to face evaluation was performed by me. I have personally seen and examined the patient. I discussed the assessment and plan with the entire medicine team. I reviewed available medical records, imaging studies, laboratory results. I a gree with the above subjective data, objective findings, assessment and plan except as corrected by me or noted below R side pyelonephritis complicated UTI, poa not associated with urinary catheter Crohn,s disease historically with fistulas per patient- 2 of them- not in flare IV Abxs, culture susceptibitlies back- patient had allergic reaction to ciprofloxacin- dc on bactrim and 7 days total is planned.
== END 2024-03-17 15:06 | disposition home or self-care (01) | DRG 463 ==
LOC: SERX 18:12 → SERHOLD 18:26 → S3EX 03-16 11:19
PROVIDERS: Nurse Practitioner Primary Care; Student in an Organized Health Care Education/Training Program; Admitting Provider Internal Medicine; Emergency Provider Emergency Medicine; PCP Physician Assistant; Visit Provider Internal Medicine
DX: N10 Acute pyelonephritis (principal); N30.90 Cystitis, unspecified without hematuria; D50.9 Iron deficiency anemia, unspecified; K50.90 Crohn's disease, unspecified, without complications; B96.4 Proteus (mirabilis) (morganii) as the cause of diseases classified elsewhere; Z16.19 Resistance to other specified beta lactam antibiotics; Z79.899 Other long term (current) drug therapy; L27.0 Generalized skin eruption due to drugs and medicaments taken internally; T36.8X5A Adverse effect of other systemic antibiotics, initial encounter; Y92.230 Patient room in hospital as the place of occurrence of the external cause
CPT/HCPCS: 36415; 74177; 80048; 80053; 80061; 81001; 81025; 83605; 83690; 83735; 84100; 84145; 84443; 85025; 87040; 87077; 87086; 87186; 87400; 87811; 96361; 96365; 96367; 96375; 99285; A4649; J0689; J0696; J0744; J1650; J2270; J2405; J2543; J7030; J7120; Q9967; A9270

== ENCOUNTER 2024-05-04 09:50 | Outpatient (RCR) | payer MEDICAID, SELFPAY ==
--- NOTE | 2024-05-28 16:26 | CTCCONSULT_ITS ---
Patient: LAURE HILL : 1995 MR#: [id number] Page 5 of 8 HEMATOLOGY CONSULTATION NOTE DATE OF CONSULTATION: 05/04/2024 NAME: LAURE HILL ACCOUNT: [id number] : 1995 AGE: 28 REFERRING PHYSICIAN: Lynda Hernandez MD PRIMARY PHYSICIAN: Lynda Hernandez MD REASON FOR VISIT: Iron deficiency DIAGNOSIS: Iron deficiency Ulcerative colitis TREATMENT HISTORY: Care?Plan Start?Date Cycle Day Intent ferrous sulfate HISTORY OF PRESENT ILLNESS: 28-year-old female used to follow us about 3 years ago. Patient have a history of iron deficiency secondary to malabsorption bleeding and menorrhagia. Patient has symptoms including fatigue tiredness memory loss iron deficiency anemia On 06/20/2021, she was contacted by Dr. Spaulding's office. Patient was then, referred to [facility] emergency department for PRBC transfusion secondary to anemia?hemoglobin 6.2, hematocrit 21.8, iron 19, iron saturation 5%, and vitamin B12 334 from labs drawn on 06/06/2019. While in the ER patient was noted to have iron deficiency anemia. Patient was given Venofer 200 mg x 1 dose instead of blood transfusion. On discharge from the emergency room, patient was prescribed ferrous sulfate 325 mg p.o. twice daily. Follow-up CBC completed on 07/07/2021 hemoglobin 7.1, hematocrit 26.6, MCV 73.0, iron 83, and iron saturation 29. Patient had col onoscopy and EGD completed on 03/07/2019- PATHOLOGY REPORT: OTHER MEDICAL HISTORY/CONDITIONS: ANEMIA CROHNS DISEASE ULCERATIVE COLITIS RECTAL FISTULA EXPLORATORY LAPAROTOMY 2017 LEFT KNEE SURGERY 2021 IN [place] FAMILY HISTORY: Father:?DENIES Mother:?DENIES Sibling:?DENIES Children:?DENIES Cancer?History:?DENIES Patient?denies?family?cancer?history. SOCIAL HISTORY: Occupational?History:?UNEMPLOYED Education?Level:?College Graduate, 2 year degree Marital?Status:? Tobacco?Use?Years:?0 Tobacco?Use:?Denies ETOH?Use:?DENIES Drug?Note:?DENIES Social?History?Note:?LIVES?WITH? [facility] [facility] HISTORY: Menarche?-?Age:?12 Date?LMP:?05/02/2024 Hormone?Use:?DENIES :?0 Live?Births:?0 Gynecological?Note:?LAST?PAP?AT?[facility] Gynecological?Note?2:?DENIES HAVING MAMMOGRAM MEDICATIONS: 1. ferrous sulfate - 325 mg (65 mg iron) 1 tab Twice a Day 2. mesalamine - 1.2 gram 1 tab Twice a Day?[place] Meds? Medications Last Reconciled by Cadence Dick RN on 05/04/2024 ALLERGIES: No Known Drug Allergies REVIEW OF SYSTEMS: A complete 14-point review of systems was performed and is negative except as noted in interval history. PHYSICAL EXAMINATION: VITAL SIGNS: Temperature?98.1, B/P?106/67, Height?59?inches, Oxygen?Saturation?98% Weight?107.8?lbs PAIN: 3 - Between mild and moderate pain GENERAL APPEARANCE: Appears well, in no apparent distress, appropriately interactive. HEENT: Normocephalic, no temporal wasting, normal conjunctiva, no scleral icterus, normal hearing, lips without lesions, neck normal range of motion. CARDIOVASCULAR: Not assessed. PULMONARY: Normal respiratory effort, no respiratory distress or use of accessory muscles, speaking in full sentences, no tachypnea. EXTREMITIES: No pedal edema or cyanosis. SKIN: Normal skin appearance. NEUROLOGIC: Alert and oriented x4. PSHYCHIATRIC: Appropriate affect, mood normal, behavior normal, intact thought and speech. LABORATORY DATA: I have personally reviewed and interpreted each of the patient?s relevant lab tests, abnormal findings are below: Date 12/18/23 12/19/23 12/20/23 12/21/23 03/15/24 03/16/24 03/17/24 ??WHITE?BLOOD?COUNT?(Thou/mm3) ? ? ? 8.3 13.3?H 10.7 7.2 ??RED?BLOOD?COUNT?(Miln/mm3) ? ? ? 3.48?L 4.21 3.50?L 3.75?L ??HEMOGLOBIN?(gm/dl) ? ? ? 8.7?L 12.0 10.1?L 10.8?L ??HEMATOCRIT?(%) ? ? ? 28.0?L 36.6 30.4?L 33.1?L ??PLATELET?COUNT?(Thou/mm3) ? ? ? 342 395 338 264 ??NEUTROPHILS?%,?AUTO?(%) ? ? ? 56 86?H 79 64 ??LYMPH?%,?AUTO?(%) ? ? ? 30 8?L 13 22 ??NEUTROPHILS,?AUTO?(Thou/mm3) ? ? ? 4.7 11.4?H 8.4?H 4.6 ??GLUCOSE,RANDOM?(mg/dL) ? ? ? 77 116?H 103 77 ??BLOOD?UREA?NITROGEN?(mg/dL) ? ? ? 9 9 <?5?L 5?L ??CREATININE?(mg/dL) ? ? ? 0.70 0.70 0.50?L 0.70 ??SODIUM?(mmol/L) ? ? ? 137 138 137 137 ??POTASSIUM?(mmol/L) ? ? ? 3.7 3.9 3.5 4.4 ??CHLORIDE?(mmol/L) ? ? ? 107 103 105 105 ??CrCl?(CandG)?(ml/min) ? ? ? 103.67 103.67 145.14 103.67 ??AST/SGOT?(Unit/L) ? <?10 10 13 18 ?ALT/SGPT?(Unit/L) ? <?7?L <?7?L <?7?L 15 ?ALKALINE?PHOSPHATASE?(Unit/L) ? 83 78 67 68 ?BILIRUBIN,?TOTAL?(mg/dL) ? 0.2?L <?0.2?L <?0.2?L 0.3 ?PROTEIN?TOTAL?(gm/dl) ? 7.2 6.3 6.7 8.2 ?ALBUMIN,?SERUM?(gm/dl) ? 4.1 3.6 3.9 4.9 ?GLOBULIN?(gm/dl) ? 3.1 2.7 2.8 3.3 ?ALBUMIN/GLOBULIN?RATIO ? 1.3 1.3 1.4 1.5 ?CALCIUM,?SERUM?(mg/dL) ? ? ? 8.7 9.5 8.6 9.0 ??CALCIUM?SERUM?(CORRECTED)?(mg/dL) ? 9.1 9.3 8.8 9.5 ?MAGNESIUM?(mg/dL) ? 2.2 ? 2.1 ? 1.8 2.2 ??TOTAL?IRON?BINDING?CAP?(S*)?(mcg/dL) 223?L ?UNBOUND?IBC?(mcg/dL) 198?L ? ASSESSMENT/PLAN: Iron deficiency Patient has severe iron deficiency without the drop in hemoglobin as well as serum iron patient secondary to ulcerative colitis and have elevated ferritin and\low iron binding capacity secondary to chronic inflammation Will start on IV iron Patient did not had any fresh labs advised to follow-up with a new labs ORDERS: Order # Description [id number] CBC with Auto Diff + Comprehensive Metabolic Panel - 12 [id number] Reticulocyte Count + Iron Panel + Ferritin + Vitamin B-12 + Folic Acid; Serum [id number] MD Follow Up 4 Week RETURN TO CLINIC: 4 weeks BILLING AND COMPLIANCE: I reviewed external records from providers outside my specialty as summarized above. I spent a total of 50 minutes on this patient?s care on the day of their visit excluding time spent related to any billed procedures. This time includes time spent with the patient as well as time spent documenting in the medical record, reviewing patients records and tests, obtaining history, placing orders, communicating with other healthcare professionals, counseling the patient, family or caregiver, and/or care coordination for the diagnoses above. Electronically Signed by: Kirby Lazar MD T: 4:24 PM CC: PCP: Lynda Hernandez Referring: Lynda Hernandez This document was completed utilizing speech recognition software. Grammatical errors, random word insertions, pronoun errors, and incomplete sentences are an occasional consequence of this system due to software limitations, ambient noise, and hardware issues. Any formal questions or concerns about the content, text or information contained within the body of this dictation should be directly addressed to the provider for clarification.
== END 2024-05-22 23:59 | disposition home or self-care (01) ==
LOC: SCTC 09:50
PROVIDERS: PCP Physician Assistant; Referring Provider Physician Assistant; Visit Provider Internal Medicine Hematology & Oncology
DX: E61.1 Iron deficiency (principal)
CPT/HCPCS: 99213; G0463

== ENCOUNTER 2024-07-19 12:22 | Emergency (ER) | payer MEDICAID, SELFPAY ==
[2024-07-19 12:43] VITALS: BP 111/79; PULSE 119; RESP 16; TEMP 37.2; O2SAT 98; BMI 22.0
--- NOTE | 2024-07-19 12:52 | XR_ITS ---
Examination: Foot, left, 3 views Technique: AP, oblique, lateral views foot, 3 views Date and time of exam: July 19, 2024 at 1258 hours INDICATIONS: Sudden onset left foot pain beginning 2 weeks ago. FINDINGS: Moderate osteopenia Early osteoarthritis first metatarsophalangeal joint No fractures IMPRESSION: Early osteoarthritis first metatarsophalangeal joint
--- NOTE | 2024-07-19 12:52 | XR_ITS ---
Examination: Tibia-Fibula, right , 2 views Technique: Tibia-fibula AP lateral 2 views Date and time of exam: July 11, 2024 1258 hours INDICATIONS: Sudden onset pain in the lower leg beginning 2 weeks ago. FINDINGS: Prominent osteopenia No fracture of the tibia or fibula No cortical bone destruction Irregularity of the medial femoral condylar articular surface IMPRESSION: Irregularity of the medial femoral condylar surface Consider elective MRI knee without contrast follow-up to assess for early osteonecrosis involving the medial femoral condyle
--- NOTE | 2024-07-19 12:53 | PD.EDRME ---
Rapid Medical Screening Exam RME Arrival date/time: 07/19/24 12:22 28-year-old female with a history of ulcerative colitis presents to the emergency room with a chief complaint of pain and tenderness to her left foot as well as pain and tenderness to her right tib-fib x 2 days patient also states she is having fevers and bruising. I have greeted and performed a focused initial assessment of this patient. A comprehensive ED assessment and evaluation of the patient, analysis of all test results, and completion of the medical decision making process will be conducted by additional ED providers. Chief Complaint: Skin/Abscess/Foreign Body Time Seen by Provider: 07/19/24 12:39 Vital signs: Vital Signs Temperature 99.0 F 07/19/24 12:43 Pulse Rate 119 H 07/19/24 12:43 Respiratory Rate 16 07/19/24 12:43 Blood Pressure 111/79 07/19/24 12:43 Pulse Oximetry (%) 98 07/19/24 12:43 Oxygen Delivery Method Room Air 07/19/24 12:43 Vital signs reviewed by provider: Yes
[2024-07-19 13:42] LABS: Basophils # (Auto) 0.1 Thou/mm3 (0.0-0.2); Basophils % (Auto) 1 % (0-2.5); Eosinophils # (Auto) 0.1 Thou/mm3 (0.0-0.5); Eosinophils % (Auto) 1 % (0-10); Hematocrit 29.6 % (36.0-46.0); Hemoglobin 9.6 g/dL (12.0-16.0); Immature Granulocytes % (Auto) 1 % (0-0); Immature Granulocytes Auto 0.05 Thou/mm3 (0.00-0.00); Lymphocytes # (Auto) 1.2 Thou/mm3 (1.0-4.8); Lymphocytes % (Auto) 13 % (10-50); Mean Corpuscular HGB Conc 32.4 g/dl (31.0-37.0); Mean Corpuscular Hemoglobin 26.5 pg (25.0-35.0); Mean Corpuscular Volume 82 fL (80-100); Monocytes # (Auto) 0.7 Thou/mm3 (0.0-0.8); Monocytes % (Auto) 8 % (0-12); Neutrophils # (Auto) 7.2 Thou/mm3 (1.8-7.7); Neutrophils % (Auto) 78 % (37-80); Nucleated Red Blood Cell % 0 /100 WBC (0); Platelet Count 500 Thou/mm3 (140-440); RDW Standard Deviation 42.6 fL (36.4-46.3); Red Blood Count 3.62 Miln/mm3 (4.00-5.20); White Blood Count 9.2 Thou/mm3 (3.6-11.0)
[2024-07-19 14:03] LABS: Sed Rate (ESR) 68 mm/hr (0-20)
[2024-07-19 14:13] LABS: Alanine Aminotransferase < 7 U/L (10-49); Albumin, Serum 4.1 gm/dL (3.5-5.0); Albumin/Globulin Ratio 1.4 (1.2-2.2); Alkaline Phosphatase 87 U/L (46-116); Anion Gap 10 (7-16); Aspartate Amino Transferase 11 U/L (0-34); BUN/Creatinine Ratio 9 Ratio (12-20); Bilirubin,Total 0.2 mg/dL (0.3-1.2); Blood Urea Nitrogen 6 mg/dL (9-23); C-Reactive Protein 4.4 mg/dL (0.0-0.9); Calcium 8.9 mg/dL (8.3-10.6); Calcium (Corrected) 8.9 mg/dL (8.5-10.1); Carbon Dioxide 26.9 mMol/L (20.0-31.0); Chloride 102 mMol/L (98-107); Creatinine (Component) 0.7 mg/dL (0.6-1.3); Estimated Creatinine Clearance 81.6 mL/min (>60); Glucose 98 mg/dL (74-106); Osmolality,Calculated 275 (275-295); Potassium 3.7 mMol/L (3.4-5.1); Sodium 139 mMol/L (136-145); Total Protein 7.1 gm/dL (5.7-8.2); eGFR > 60 See Note
[2024-07-19 14:16] LABS: Collection Type, Urine Clean Catch
[2024-07-19 14:36] LABS: Bilirubin,Urine Negative (Negative); Blood,Urine Trace (Negative); Clarity,Urine Clear (Clear/Hazy); Color,Urine Lt-Yellow (Lt Yel-Yel); Culture Indicated,Urine Yes; Glucose, Urine Negative (Negative); Ketones,Urine Negative (Negative); Leukocyte Esterase,Urine Positive (Negative); Nitrite,Urine Negative (Negative); PH,Urine 7.5 (5.0-7.0); Protein,Urine Negative (Neg - Trace); RBC,Urine 9 /hpf (0-3); Specific Gravity,Urine 1.018 (1.001-1.035); Squamous Epithelial Cell,Urine 2 /hpf (0-5); Urobilinogen,Urine Negative mg/dL (0.0-1.0); WBC,Urine 38 /hpf (0-5)
[2024-07-19 17:58] VITALS: BP 106/73; PULSE 108; RESP 19; TEMP 37.1; O2SAT 98
--- NOTE | 2024-07-19 19:34 | PD.EDEXREM ---
ED Extremity Problem RME/HPI General Chief complaint: Skin/Abscess/Foreign Body Stated complaint: BUMP TO RT LEG AND LEFT FOOT Time Seen by Provider: 07/19/24 12:39 Arrival date/time: 07/19/24 12:22 RME / HPI RME / HPI Narrative: 07/19/24 12:22 28-year-old female with a history of ulcerative colitis presents to the emergency room with a chief complaint of pain and tenderness to her left foot as well as pain and tenderness to her right tib-fib x 2 days patient also states she is having fevers and bruising. I have greeted and performed a focused initial assessment of this patient. A comprehensive ED assessment and evaluation of the patient, analysis of all test results, and completion of the medical decision making process will be conducted by additional ED providers. This section includes all my notes and documentations, including HPI, PE, and ED course. Mark Anthony James MD HPI: 28 y/o female with Hx of Crohn' Disease and Anemia presents to ED c/o left foot pain and right lower leg pain and bruising x over 2 weeks. No injury. No other complaints. ROS: All negative except as documented in HPI. Physical Exam: General: Alert and oriented. No acute distress when remaining still. Eyes: Conjunctivae and lids clear. ENT: No nasal congestion. Neck: Supple. Lungs: No respiratory distress. Skin: Warm and dry. Neuro: Alert and oriented X 3. Musculoskeletal: Remarkable for difficult to localize left foot tenderness and right lower leg tenderness. All other major joints and bones are not tender with no limited ROM. I reviewed all diagnostic test results. My interpretation of the Tibia/Fibula x-ray is no acute findings. My interpretation of the Foot x-ray is no acute findings Blood tests remarkable for CRP 4.4. UA showed 38 WBC. At this point, diagnoses include left foot pain, Pain in right lower leg of unclear etiology with possible UTI. Based on my best medical judgment, made decision no further evaluation or treatment indicated at this time. Patient understands and agrees to the discharge instructions customized and printed, see below. Discharge Instructions from Dr. James printed for you: 1. After evaluation, exact cause of your left foot pain and right lower leg pain was not determined. With your history of Crohn's disease, they may be related to possible autoimmune condition(s). 2. Try minimal weightbearing and elevating above the waist level for 3 days then as needed. 3. Apply ice or heat if helpful. 4. Ibuprofen 400 mg every 6-8 hours today and tomorrow to decrease inflammation then as needed. 5. Prednisone to decrease inflammation/swelling. 6. Tylenol with codeine for severe pain. Cefdinir for UTI. 7. Most importantly, see a private doctor on 07/20/2024 for recheck and further care. Ask for more care to help find the cause and treatment of your pain. Including referrals to see specialists, such as family manager who specializes in bones and joints and muscles. To make sure there is no serious underlying condition. Ask to review all test results and official radiology reports, to make sure you receive all necessary follow-ups and monitoring. 8. Seek immediate medical care with worsening or with any concerns. Mark Anthony James MD Related Data Home Medications ?Medication ?Instructions ?Recorded ?Confirmed ferrous sulfate 325 mg (65 mg 1 tab PO BID 10/17/21 03/16/24 iron) tablet,delayed release mesalamine 1.2 gram tablet,delayed 1.2 g PO BID 03/16/24 03/16/24 release Previous Rx's ?Medication ?Instructions ?Recorded sulfamethoxazole 800 1 tab PO BID #14 tabs 03/17/24 mg-trimethoprim 160 mg tablet (Bactrim DS) acetaminophen 300 mg-codeine 30 mg 2 tab PO Q8H PRN pain #20 tabs 07/19/24 tablet cefdinir 300 mg capsule 300 mg PO BID #14 caps 07/19/24 prednisone 50 mg tablet 50 mg PO QDAY 5 days #5 tabs 07/19/24 Allergies Allergy/AdvReac Type Severity Reaction Status Date / Time ciprofloxacin Allergy Mild Rash Verified 03/17/24 11:08 Review of Systems Review of Systems Systems Reviewed: All systems reviewed, normal except as documented Past Medical History Past Medical History GASTROINTESTINAL: Positive Gastrointestinal Disorders, Gastrointestinal Bleed, Colitis, Ulcerative Colitis, Irritable Bowel and Crohn's Disease HEMATOLOGIC: Positive Anemia OTHER HISTORY: Positive Blood Transfusions Family History FAMILY HISTORY: Positive Family Respiratory Disorders Surgical History SURGICAL: Positive Abdominal Surgery and Bowel Surgery ED Exam Narrative Physical exam: Refer to HPI above Course Quality Measures none Orders Category Date Time Status XR foot comp LT min 3V Stat Exams 07/19/24 12:52 Completed XR tibia fibula RT 2V Stat Exams 07/19/24 12:52 Completed CBC Stat Lab 07/19/24 13:20 Completed CMP [Comprehensive Metabolic Panel] Stat Lab 07/19/24 13:20 Completed CRP [C-Reactive Protein] Stat Lab 07/19/24 13:20 Completed ESR [Sed Rate (ESR)] Stat Lab 07/19/24 13:20 Completed UA, C/S IF [Urinalysis, C/S if Indicated] Stat Lab 07/19/24 14:10 Completed Urine Culture Stat Lab 07/19/24 14:10 Received Vital Signs Vital signs: Vital Signs Temperature 99.0 F 07/19/24 12:43 Pulse Rate 119 H 07/19/24 12:43 Respiratory Rate 16 07/19/24 12:43 Blood Pressure 111/79 07/19/24 12:43 Pulse Oximetry (%) 98 07/19/24 12:43 Oxygen Delivery Method Room Air 07/19/24 12:43 Extremity Problem MDM Narrative MDM Narrative:: Scribe Attestation: Sonia Muñoz, am scribing for and in the presence of Dr. James. Provider Notation: Although this document has been carefully reviewed, there may still be some phonetic and other typographical errors.? These errors are purely grammatical due to imperfections in the software program and should not be construed in any way to? compromise the substance of the patient's medical care during this visit. 28 y/o female with Hx of Crohn' Disease and Anemia presents to ED c/o BLE pain and bruising x over 2 weeks. Pain was so bad yesterday that she was not able to stand. Pain spans from below the knees down to her toes. Patient took Prednisone for approximately 3 months over 1 month ago. Patient also admits to left knee surgery. Patient data External records reviewed:: [facility] previous records (Reviewed prior ED records from 03/15/24. Patient was seen for Acute Crohn's disease with fistula.) Clinical information provided by:: patient Social determinants that could affect healthcare access:: none Patient has the following chronic illnesses:: Gastrointestinal Bleed, Colitis, Ulcerative Colitis, Irritable Bowel, Crohn's Disease, Anemia How is presenting disease/condition affected by chronic disease/condition?: exacerbated by Evaluation data The following diagnostics were reviewed and interpreted by me:: lab results and radiology exam(s) Lab and/or radiology exams considered but not ordered:: None Interpretation Summary: I reviewed all diagnostic test results. My interpretation of the Tibia/Fibula x-ray is no acute findings. My interpretation of the Foot x-ray is no acute findings Blood tests remarkable for CRP 4.4. UA showed 38 WBC. Medications / Prescriptions Medications or Prescriptions considered but not ordered:: None Medication administrations:: N/A Consultations Consultation(s) initiated? (list below): No Diagnosis Extremity Problem Differential Diagnosis: gout, cellulitis, lower extremity edema and other (Contusion, Abrasion, Fracture) Most likely diagnosis given after review of the tests above:: Left foot pain, Pain in right lower leg of unclear etiology and possible UTI. Admission Indicated Admission indicated?: not indicated Explain why admission is indicated or not indicated:: With no conditions needing emergent intervention or treatment, there was no indication for admission.? Admission Request Was there a request for admission?: No Disposition Plan Disposition Plan: Discharge Discharge Attestation Discharge Attestation: The patient and all family members were given an opportunity to ask questions and understood the discharge instructions. Discharge instructions specifically effects, indications for sooner follow up or return to the emergency department, and the expected course of current diagnosis. Patient condition: Stable Discharge Plan Plan Patient Disposition: HOME (Self Care) Prescriptions/Referrals Prescriptions/Med Rec: New acetaminophen-codeine 300-30 mg tablet 2 tab PO Q8H MDD 6 PRN (Reason: pain) Qty: 20 0RF prednisone 50 mg tablet 50 mg PO QDAY 5 Days Qty: 5 0RF cefdinir 300 mg capsule 300 mg PO BID Qty: 14 0RF No Action ferrous sulfate 325 mg (65 mg iron) tablet,delayed release (DR/EC) 1 tab PO BID Patient Comments: TAKE 1 TABLET BY MOUTH TWICE A DAY FOR 90 DAYS mesalamine 1.2 gram tablet,delayed release (DR/EC) 1.2 g PO BID Patient Comments: TAKE 1 TABLET BY MOUTH TWICE A DAY FOR 8 WEEKS sulfamethoxazole-trimethoprim [Bactrim DS] 800-160 mg tablet 1 tab PO BID Qty: 14 0RF Referrals: Lynda Hernandez PA-C [Primary Care Provider] - In 1 week Problem List Clinical Impression: Left foot pain, Pain in right lower leg Patient/Caregiver Discharge Instructions Discharge Activity: activity as tolerated Education Materials: ED Myalgias Additional Instructions: Discharge Instructions from Dr. James printed for you: 1. After evaluation, exact cause of your left foot pain and right lower leg pain was not determined. With your history of Crohn's disease, they may be related to possible autoimmune condition(s). 2. Try minimal weightbearing and elevating above the waist level for 3 days then as needed. 3. Apply ice or heat if helpful. 4. Ibuprofen 400 mg every 6-8 hours today and tomorrow to decrease inflammation then as needed. 5. Prednisone to decrease inflammation/swelling. 6. Tylenol with codeine for severe pain. Cefdinir for UTI. 7. Most importantly, see a private doctor on 07/20/2024 for recheck and further care. Ask for more care to help find the cause and treatment of your pain. Including referrals to see specialists, such as family manager who specializes in bones and joints and muscles. To make sure there is no serious underlying condition. Ask to review all test results and official radiology reports, to make sure you receive all necessary follow-ups and monitoring. 8. Seek immediate medical care with worsening or with any concerns. Print Language: Kosovan Stand Alone Forms: [employer] Award Info., Patient Portal Info Letter
== END 2024-07-19 20:01 | disposition home or self-care (01) ==
PROVIDERS: Nurse Practitioner Family; Emergency Provider Emergency Medicine; PCP Physician Assistant
DX: S80.11XA Contusion of right lower leg, initial encounter (principal); M79.672 Pain in left foot; K50.90 Crohn's disease, unspecified, without complications; X58.XXXA Exposure to other specified factors, initial encounter
CPT/HCPCS: 36415; 73590; 73630; 80053; 81001; 85025; 85652; 86140; 87086; 99283

== ENCOUNTER 2024-12-27 11:20 | Inpatient (IN) | payer MEDICAID, SELFPAY ==
[2024-12-27] VITALS (10 sets, daily range): BP systolic 100–129; BP diastolic 66–81; PULSE 73–110; RESP 14–20; TEMP 36.4–36.9; O2SAT 93–100; BMI 23.6
--- NOTE | 2024-12-27 11:40 | EKG_ITS ---
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
--- NOTE | 2024-12-27 11:40 | XR_ITS ---
CLINICAL HISTORY: Abdominal pain, particularly left lower quadrant. Patient reports undergoing colonoscopy yesterday. Time of exam: 12/27/2024 at 2:07 p.m. COMPARISON: CT abdomen/pelvis without contrast 03/15/2024 CTDI: 5.57 mg Y DLP: 289 mg Y CM TECHNIQUE: CT of the abdomen and pelvis without intravenous contrast. Oral contrast was not administered. Coronal and sagittal reformatted images were generated. FINDINGS: Lack of intravenous contrast limits evaluation of solid organs, vasculature, and lymph nodes. Lower thorax: Extensive pneumomediastinum in the [id number]. No pleural effusions. No airspace consolidation. Heart size is within normal limits. Liver: No significant hepatic enlargement. No gross liver mass. Biliary system: No calcified gallstones or findings concerning for acute cholecystitis or biliary ductal obstruction. Spleen: Within normal limits of size. No discrete mass. Pancreas: No contour deforming mass or overt main pancreatic duct dilatation. No evidence for acute inflammation. Adrenal glands: No significant findings. Kidneys: No contour-deforming solid mass. Approximately 3 mm calculus noted at the inferior pole the left kidney, and punctate approximately 2 mm calculus in the interpolar aspect of the right kidney. No obstructing ureteral calculus is detected on either side.. Bladder: No calculi or discrete mass. Pelvic organs: Mildly complex appearing left ovarian cyst measuring 2.2 cm in size. Anteverted uterus. Bowel/Peritoneal cavity: Limited assessment without IV and oral contrast as well as segments of underdistention. Nonspecific mural thickening involving the distal transverse colon and splenic flexure of the colon, either due to inflammation or peristaltic contraction. No evidence for bowel obstruction. No evidence for acute appendicitis. No hematoma or ascites. Lymph nodes/retroperitoneum: Extensive pneumoretroperitoneum is present, left side much greater than right. No pathologically enlarged lymph nodes or other masses in the retroperitoneum. Mildly prominent presumed reactive right groin lymph node measures nearly 1.1 cm short axis. No hematoma or other abnormal collections. Vessels: Normal caliber abdominal aorta. 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 Abdominal/Pelvic wall: Very small fat-containing umbilical hernia noted. Musculoskeletal: No recent fractures or tumor suspicious lytic or blastic lesions. IMPRESSION: Extensive pneumoretroperitoneum, left side much greater than right, and pneumomediastinum in the [id number]. Nonspecific mild mural thickening of the distal transverse colon including splenic flexure, either due to inflammation or peristaltic contraction. A follow-up CT abdomen pelvis after water-soluble rectal contrast administration should be considered to assess for a site of perforation. Complex-appearing 2.2 cm left ovarian cyst can be further characterized with pelvic ultrasound. Bilateral very mild nonobstructive nephrolithiasis. Critical findings were discussed with Dr. Marcello Nassar PA-C, via telephone on 12/27/2024 2:32 PM. - This report was created utilizing voice recognition software. -
--- NOTE | 2024-12-27 11:40 | PD.EDRME ---
Rapid Medical Screening Exam RME Arrival date/time: 12/27/24 11:20 29-year-old female presents to the Emergency Department for complaints of abdominal pain patient reports history of colonoscopy yesterday and history of ulcerative colitis Chief Complaint: Abdominal Pain Exam: On exam patient has tenderness lower abdomen Clinical Impression: Lab work and imaging ordered
[2024-12-27 12:03] LABS: Basophils # (Auto) 0.0 Thou/mm3 (0.0-0.2); Basophils % (Auto) 0 % (0-2.5); Eosinophils # (Auto) 0.1 Thou/mm3 (0.0-0.5); Eosinophils % (Auto) 1 % (0-10); Hematocrit 36.7 % (36.0-46.0); Hemoglobin 11.9 g/dL (12.0-16.0); Immature Granulocytes Auto 0.02 Thou/mm3 (0.00-0.00); Lymphocytes # (Auto) 1.5 Thou/mm3 (1.0-4.8); Lymphocytes % (Auto) 16 % (10-50); Mean Corpuscular HGB Conc 32.4 g/dl (31.0-37.0); Mean Corpuscular Hemoglobin 27.1 pg (25.0-35.0); Mean Corpuscular Volume 84 fL (80-100); Monocytes # (Auto) 0.7 Thou/mm3 (0.0-0.8); Monocytes % (Auto) 7 % (0-12); Neutrophils # (Auto) 7.0 Thou/mm3 (1.8-7.7); Neutrophils % (Auto) 76 % (37-80); Nucleated Red Blood Cell # 0.00 Thou/mm3 (0.00-0.00); Nucleated Red Blood Cell % 0 /100 WBC (0); Platelet Count 351 Thou/mm3 (140-440); RDW Standard Deviation 43.0 fL (36.4-46.3); Red Blood Count 4.39 Miln/mm3 (4.00-5.20); White Blood Count 9.3 Thou/mm3 (3.6-11.0)
[2024-12-27 12:23] LABS: Alanine Aminotransferase 11 U/L (10-49); Albumin, Serum 5.2 gm/dL (3.5-5.0); Albumin/Globulin Ratio 1.9 (1.2-2.2); Alkaline Phosphatase 79 U/L (46-116); Anion Gap 12 (7-16); Aspartate Amino Transferase 22 U/L (0-34); BUN/Creatinine Ratio 16 Ratio (12-20); Bilirubin,Total 0.4 mg/dL (0.3-1.2); Blood Urea Nitrogen 11 mg/dL (9-23); Calcium 9.5 mg/dL (8.3-10.6); Calcium (Corrected) 9.5 mg/dL (8.5-10.1); Carbon Dioxide 21.0 mMol/L (20.0-31.0); Chloride 105 mMol/L (98-107); Creatinine (Component) 0.7 mg/dL (0.6-1.3); Estimated Creatinine Clearance 88.3 mL/min (>60); Globulin 2.7 gm/dL (2.3-3.5); Glucose 129 mg/dL (74-106); Lipase 30 U/L (12-53); Osmolality,Calculated 277 (275-295); Potassium 3.3 mMol/L (3.4-5.1); Sodium 138 mMol/L (136-145); Total Protein 7.9 gm/dL (5.7-8.2); Troponin I < 0.002 ng/mL (0.0-0.045); eGFR > 60 See Note
[2024-12-27 12:28] LABS: Collection Type, Urine Clean Catch
[2024-12-27 12:33] LABS: HCG Qualitative,Urine Negative
[2024-12-27 12:38] LABS: Bacteria,Urine 1+; Bilirubin,Urine Negative (Negative); Blood,Urine 2+ (Negative); Clarity,Urine Turbid (Clear/Hazy); Color,Urine Yellow (Lt Yel-Yel); Culture Indicated,Urine Contaminated; Glucose, Urine Negative (Negative); Ketones,Urine 1+ (Negative); Leukocyte Esterase,Urine Positive (Negative); Nitrite,Urine Negative (Negative); PH,Urine 6.0 (5.0-7.0); Protein,Urine 1+ (Neg - Trace); RBC,Urine 17 /hpf (0-3); Specific Gravity,Urine 1.025 (1.001-1.035); Squamous Epithelial Cell,Urine 21 /hpf (0-5); Urobilinogen,Urine Negative mg/dL (0.0-1.0); WBC,Urine 790 /hpf (0-5)
--- NOTE | 2024-12-27 14:46 | EDNOTE_ITS ---
ED Abdominal Pain RME/HPI General Chief Complaint: Abdominal Pain Stated complaint: LLQ PAIN, CHEST PAIN, SORE THROAT Time seen by provider: 12/27/24 14:07 Arrival date/time: 12/27/24 11:20 29-year-old female patient with significant history of ulcerative colitis, came in for evaluation regarding left-sided abdominal pain chest pain and sore throat. Patient had colonoscopy done yesterday, in [place], with no complication according to her however patient went home with worsening left sided abdominal pain, substernal pain, and sore throat. No fever noted no vomiting noted no diarrhea no constipation noted. Patient denies any other complaints. Patient had colonoscopy done also 2017 and had a perforation and had a surgery in this hospital. RME / HPI RME / HPI narrative: 12/27/24 11:20 29-year-old female presents to the Emergency Department for complaints of abdominal pain patient reports history of colonoscopy yesterday and history of ulcerative colitis Exam: On exam patient has tenderness lower abdomen Impression: Lab work and imaging ordered Related Data Home Medications ?Medication ?Instructions ?Recorded ?Confirmed ferrous sulfate 325 mg (65 mg 1 tab PO BID 10/17/21 iron) tablet,delayed release mesalamine 1.2 gram tablet,delayed 1.2 g PO BID 03/16/24 release Previous Rx's ?Medication ?Instructions ?Recorded sulfamethoxazole 800 1 tab PO BID #14 tabs mg-trimethoprim 160 mg tablet (Bactrim DS) acetaminophen 300 mg-codeine 30 mg 2 tab PO Q8H PRN pa in #20 tabs 07/19/24 tablet cefdinir 300 mg capsule 300 mg PO BID #14 caps 07/19 Allergies Allergy/AdvReac Type Severity Reaction Status Date / Time ciprofloxacin Allergy Mild Rash Verified 12/27/24 11:23 Review of Systems Review of Systems Narrative Review of Systems: Review of system reviewed and within normal limits except mentioned in HPI ED Exam Narrative Physical exam: VITAL SIGNS: Reviewed. GENERAL APPEARANCE: Alert and interactive, follows commands, no acute distress, HEAD AND FACE: Non-traumatic. No subcutaneous emphysema noted ENT: PERRL, pink conjunctivitis, eyelid no trauma, Mucous membrane moist. NECK: Supple, nontender, no nuchal rigidity. CHEST: No tenderness, no crepitus, no paradoxical movement, no retractions. LUNGS: Clear, well ventilated, symmetric, no rales, no wheezing, no ronchi, no stridor, good breath sounds bilaterally. HEART: Regular rate, regular rhythm, no murmur, no gallops. ABDOMEN: Soft, positive bowel sounds, nondistended, no guarding, left sided abdominal tenderness, no rebound, no masses, RECTAL: Deferred. GENITAL: Deferred. NEUROLOGICAL: Gross motor function intact sensory function intact, Appropriate for age. MUSCULOSKELETAL: low back nontender, full range of motion. EXTREMITIES: Nontender, full range of motion. SKIN: Color pink, dry, no rash, no lacerations, no abrasions, no contusions. LYMPHATICS: Deferred. Course Quality Measures none Orders Category Date Time Status EKG (ED ONLY) *Do not use* NOW Care 12/27/24 11:40 Completed Referral - Professor Of Mathematics Stat Cons 12/27/24 15:[address] abdomen pelvis wo con Stat Exams 12/27/24 11:40 Completed EKG (ED Only) Stat Exams 12/27/24 11:40 Draft CBC Stat Lab 12/27/24 11:57 Completed Comprehensive Metabolic Panel Stat Lab 12/27/24 11:57 Completed HCG Qualitative,Urine Stat Lab 12/27/24 12:15 Completed Lipase Stat Lab 12/27/24 11:57 Completed Troponin I Stat Lab 12/27/24 11:57 Completed UA, C/S IF [Urinalysis, C/S if Indicated] Stat Lab 12/27/24 12:15 Completed HYDROmorphone INJ [Dilaudid Inj] Med 12/27/24 17:32 Discontinued 1 mg IVP X1 ONE Morphine* Inj Med 12/27/24 14:59 Discontinued 4 mg IVP X1 ONE Ondansetron Inj [Zofran Inj] Med 12/27/24 14:58 Discontinued 4 mg IVP X1 ONE Piper/Tazo 3.375 gm Premix [Zosyn] Med 12/27/24 14:58 Discontinued 3.375 gm in 50 ml IV X1 Ringers Lactated 1000 ml [Lactated Ringers] 1,000 ml Med 12/27/24 14:59 Discontinued IV 999 mls/hr Vital Signs Vital signs: Vital Signs Temperature 98.4 F 12/27/24 11:40 Pulse Rate 108 H 12/27/24 11:40 Respiratory Rate 18 12/27/24 11:40 Blood Pressure 100/67 12/27/24 11:40 Pulse Oximetry (%) 96 12/27/24 11:40 Oxygen Delivery Method Room Air 12/27/24 11:40 Abdominal Pain [facility] Narrative [facility] Narrative:: 29-year-old female patient with significant history of ulcerative colitis, came in for evaluation regarding left-sided abdominal pain chest pain and sore throat. Patient had colonoscopy done yesterday, in [place], with no complication according to her however patient went home with worsening left sided abdominal pain, substernal pain, and sore throat. No fever noted no vomiting noted no diarrhea no constipation noted. Patient denies any other complaints. Patient had colonoscopy done also 2017 and had a perforation and garner d a surgery in this hospital. Patient was noted to be febrile, WBC count is normal no leukocytosis potassium 3.[address] scan of the abdomen and pelvis showed extensive pneumoretroperitoneum and pneumomediastinum. I spoke with GI specialist who did a colonoscopy, who recommends the patient to be admitted to the hospital for conservative management. I spoke with Dr. Lance brandon [facility] surgeon on-call, who told me that patient needs to be transferred somewhere else he will not accept the patient in this hospital. Patient received IV fluids, IV Zosyn, morphine and Zofran Patient was reevaluated again by Dr. Lucas, who decided to admit the patient for surgery tonight Patient data External records reviewed:: None Clinical information provided by:: patient Social determinants that could affect healthcare access:: none Patient has the following chronic illnesses:: History of ulcerative colitis How is presenting disease/condition affected by chronic disease/condition?: exacerbated by Evaluation data The following diagnostics were reviewed and interpreted by me:: lab results and radiology exam(s) Lab and/or radiology exams considered but not ordered:: None Interpretation Summary: See MDM Medications / Prescriptions Medications or Prescriptions considered but not ordered:: None Medication administrations:: Medication Administration History Fentanyl Citrate (Fentanyl Cit Inj 50 Mcg/Ml Amp 2ml) 50 mcg IVP Q5MIN PRN PRN Reason: PAIN SCALE 4-10(Mod-Sev Hydralazine HCl (Hydralazine Inj 20 Mg/Ml Vial) 5 mg IV Q20MIN PRN PRN Reason: SEE COMMENTS Hydromorphone HCl (Hydromorphone Inj 2 Mg/Ml Vial) 0.5 mg IVP Q10MIN PRN PRN Reason: PAIN SCALE 4-10(Mod-Sev Sodium Chloride (Ns) 1,000 mls @ 100 mls/hr IV .Q10H [place] Stop: 01/26/25 19:29 Last Admin: 12/27/24 19:41 Dose: 100 mls/hr Documented By: BRETT Meperidine HCl (Meperidine Inj 50 Mg/Ml Vial) 12.5 mg IVP Q5M PRN PRN Reason: SHIVERING Stop: 01/01/25 21:48 Midazolam HCl (Midazolam Inj 1 Mg/Ml Vial 2 Ml) 1 mg IVP Q5MIN PRN PRN Reason: ANXIETY Stop: 12/28/24 21:48 Ondansetron HCl (Ondansetron Inj 2 Mg/Ml Inj 2 Ml) 4 mg IVP X1 PRN PRN Reason: NAUSEA OR VOMITING Discontinued Medications Bupivacaine HCl/Epinephrine Bitart (Bupivacaine Mpf/Epi 0.5% 30 Ml Vial 1:200,000) Confirm Administered Dose 30 ml .ROUTE .STK-MED ONE Stop: 12/27/24 21:55 Dexamethasone Sodium Phosphate (Dexamethasone Sod Phos Inj 10 Mg/Ml Vial) Confirm Administered Dose 10 mg .ROUTE .STK-MED ONE Stop: 12/27/24 20:48 Fentanyl Citrate (Fentanyl Cit Inj 50 Mcg/Ml Amp 2ml) Confirm Administered Dose 100 mcg .ROUTE .STK-MED ONE Stop: 12/27/24 20:48 Hydromorphone HCl (Hydromorphone Inj 2 Mg/Ml Vial) 1 mg IVP X1 ONE Stop: 12/27/24 17:33 Last Admin: 12/27/24 17:40 Dose: 1 mg Documented By: MICHELLE Hydromorphone HCl (Hydromorphone Inj 2 Mg/Ml Vial) Confirm Administered Dose 2 mg .ROUTE .STK-MED ONE Stop: 12/27/24 21:21 Piperacillin/Tazobactam/Dextrose (Zosyn) 3.375 gm in 50 mls @ 100 mls/hr IV X1 ONE; Protocol Stop: 12/27/24 15:27 Last Infusion: 12/27/24 15:50 Dose: Infused Documented By: Admin: 12/27/24 15:20 Dose: 100 mls/hr Documented By: MICHELLE Lactated Ringer's (Lactated Ringers) 1,000 mls @ 999 mls/hr IV .Q1H1M ONE Stop: 12/27/24 15:59 Last Infusion: 12/27/24 16:22 Dose: Infused Documented By: Admin: 12/27/24 15:21 Dose: 999 mls/hr Documented By: MICHELLE Piperacillin/Tazobactam/Dextrose (Zosyn) 3.375 gm in 50 mls @ 100 mls/hr IV X1 ONE; Protocol Stop: 12/27/24 21:29 Last Infusion: 12/27/24 20:28 Dose: Infused Documented By: Admin: 12/27/24 19:52 Dose: 100 mls/hr Documented By: BRETT Acetaminophen (Ofirmev Inj) Confirm Administered Dose 100 mls @ ud IV .STK-MED ONE Stop: 12/27/24 21:13 Lidocaine HCl (Lidocaine Inj Pf 1% 2 Ml Vial) Confirm Administered Dose 2 ml .ROUTE .STK-MED ONE Stop: 12/27/24 20:48 Morphine Sulfate (Morphine Sulf Inj 4 Mg/Ml Vial) 4 mg IVP X1 ONE Stop: 12/27/24 15:00 Last Admin: 12/27/24 15:21 Dose: 4 mg Documented By: MICHELLE Ondansetron HCl (Ondansetron Inj 2 Mg/Ml Inj 2 Ml) 4 mg IVP X1 ONE; Protocol Stop: 12/27/24 14:59 Last Admin: 12/27/24 15:21 Dose: 4 mg Documented By: MICHELLE Ondansetron HCl (Ondansetron Inj 2 Mg/Ml Inj 2 Ml) Confirm Administered Dose 4 mg .ROUTE .STK-MED ONE Stop: 12/27/24 21:44 Phenylephrine HCl (Phenylephrine Inj In Ns 100 Mcg/Ml 10 Ml Syringe) Confirm Administered Dose 1,000 mcg .ROUTE .STK-MED ONE Stop: 12/27/24 21:11 Propofol (Propofol Inj 10 Mg/Ml Vial 20 Ml) Confirm Administered Dose 200 mg IV .STK-MED ONE Stop: 12/27/24 20:48 Sugammadex Sodium (Sugammadex Inj 100 Mg/Ml 2ml Vial) Confirm Administered Dose 200 mg .ROUTE .STK-MED ONE Stop: 12/27/24 21:44 IV fluids, IV Zosyn, morphine Dilaudid and Zofran Consultations Consultation(s) initiated? (list below): Yes Consultation #1 (Physician, Specialty, Details): General surgeon on-call, , Discussed the case, who admitted the patient. Diagnosis Differential diagnosis abdominal pain: abdominal pain and other (Bowel perforation, pneumomediastinum, pneumoretroperitoneum) Most likely diagnosis given after review of the tests above:: Bowel perforation, pneumoretroperitoneum status post colonoscopy Admission Indicated Admission indicated?: indicated Admission Request Was there a request for admission?: Yes Admission Attestation Admission request attestation: Dr Willis agrees to accept the patient for admission. Disposition Plan Disposition Plan: Admit Discharge Plan Plan Patient Disposition: Admit Acute Care w/in Hospital Problem List Clinical Impression: Pneumoretroperitoneum, Status post colonoscopy
[2024-12-27] MEDS: PIPER/TAZO 3.375 GM PREMIX 3.375 GM/50 ML BAG IV ×2 (15:20→19:52)
[2024-12-27] MEDS: MORPHINE SULF INJ 4 MG/ML VIAL IVP ×2 (15:21→23:30)
[2024-12-27] MEDS: RINGERS LACTATED 1000 ML 1,000 ML 999 ML IV (15:21)
[2024-12-27] MEDS: ONDANSETRON INJ 2 MG/ML INJ 2 ML 4 MG IVP ×2 (15:21→23:31)
--- NOTE | 2024-12-27 15:30 | PC.CC ---
Addendum entered by Nai Zuniga RN 12/27/24 19:31: 1924: Dr. Lucas called for update. Informed him that I have handed off to Fatou and that she will continue the transfer process. He was upset that [facility] hasnt taken the patient. I explained to him several times that [facility] will reassess their bed situation at 2000 and call us back. I reiterated that I have handed off to auto service dispatcher Fatou and that she will continue the process. 1919: Transfer packet w/ 1 CD taken to ED, handoff report given to auto service dispatcher Lydia. Addendum entered by Nai Zuniga RN 12/27/24 19:16: 1850: Clarence gray/ [facility] called back, Dr. Amaro spoke to Claudia. cardiothoracic service is not needed. Need General surgeon. Dr. Albright is consulted - she stated that she would like to a peer to peer with Dr Lucas. Claudia stated he will reach out to Dr. Lucas again. Addendum entered by Nai Zuniga RN 12/27/24 18:47: 1842: called [facility] to initiate transfer request, left message to return my call. 1830: initiated transfer request w/ Tyson at [facility]. Will have nurse review and call back 1829: clinicals and imaging sent to [facility] and [facility]. Addendum entered by Nai Zuniga RN 12/27/24 17:51: 1750: called [facility], left VM to return my call. Addendum entered by Nai Zuniga RN 12/27/24 17:50: 1745: Clinicals and imaging sent to [facility]. 1738: Claudia called to inform me that Dr. Lucas spoke to Dr. Macdonald. Dr. Macdonald stated to try to go to the nearest facility, if they can not take patient, reach back out to [facility]. 1731: [facility] called back stated, they are at bed capacity and will re-assess at 2000 and call back. I provided the ED contact information. 1650: I called [facility], informed her that the providers would like to continue to transfer for HLOC for both general surgery and cardio thoracic surgery. She stated she will present the case as of HLOC instead of continuity of care. 1638: discussed this case with Jessica Steel, and Dr. Frazier. All agreed pt should go to [place] for continuity of care. 1635: [facility] called back, Dr. Macdonald stated colonoscopy was performed at an outpatient facility. Per Dr. Macdonald try reaching out to [facility]. 1541: [place] called, clinical update provided. She stated she will reach out to Dr. Jorden Macdonald and call back. 1533: transfer request initiated w/ Susana. Original Note: 1528: Clinicals and imaging sent to [facility]. CD x1 created. 1523: received call from [employer] Claudia Le for transfer request for General Surgery for pneumoretroperitoneum, pneumomediastinum s/p colonoscopy yesterday w/ Dr. Macdonald. Per Claudia, he spoke to Dr. Macdonald and he was advised to send patient to [facility] or [facility] in [place] which are [facility] facilities.
[2024-12-27] MEDS: HYDROmorphone INJ 2 MG/ML VIAL 1 MG IVP (17:40)
[2024-12-27] MEDS: SODIUM CHLORIDE 0.9% 1000 ML 1,000 ML 100 ML IV (19:41)
--- NOTE | 2024-12-27 19:43 | PC.NURSE ---
MD MAJANO TO SEE PT STATED HE WOULD GO to the OR at 2030
--- NOTE | 2024-12-27 20:29 | PC.NURSE ---
PATIENT IS BEING TAKEN TO SURGERY BY MICHEL MCFARLANE.
--- NOTE | 2024-12-27 21:00 | PD.SURHP ---
[facility] Date of Admission 12/27/24 19:29 Chief Complaint Chief Complaint: Patient is admitted with a history of abdominal pain following a colonoscopy yesterday at [facility] History of present illness revealed the patient has history of ulcerative colitis for many years about 11 years. She has been treated in various places and she went to senior medical director in [place] yesterday and a colonoscopy was performed by Dr. Barajas and was discharged. Patient started having pain after the procedure and could not sleep last night. This morning she came to the emergency room and was found to have a free air under the diaphragm. She is describing the pain is 9 out of 10. She denies any history of nausea or vomiting. Patient has had a previous surgery following a colonoscopy back in 2017 for drainage of the intra-abdominal abscess. At that time she was told that the patient had perforation during colonoscopy by the surgeon who operated her here. Patient denies any other major medical problem. Past Medical History Past Medical History NEUROLOGIC: Negative Neurological Disorders or Seizures CARDIAC: Negative Cardiac Disorders or Congestive Heart Failure RESPIRATORY: Negative Chronic Obstructive Pulmonary Disease (COPD) or Asthma GASTROINTESTINAL: Positive Gastrointestinal Disorders, Gastrointestinal Bleed, Colitis, Ulcerative Colitis, Irritable Bowel and Crohn's Disease GENITOURINARY: Negative Genitourinary Disorders or Renal Disease REPRODUCTIVE: Negative Pelvic Inflammatory Disease MUSCULOSKELETAL: Negative Musculoskeletal Disorders ENDOCRINE: Negative Endocrine Disorders, Diabetes Mellitus Type 1 or Diabetes Mellitus Type 2 HEMATOLOGIC: Positive Blood Disorders and Anemia; Negative Sickle Cell Disease OTHER HISTORY: Positive Blood Transfusions; Negative Autoimmune Disease, Blood Transfusion Reaction, Anesthesia Reactions, MRSA, VRSA, Vancomycin-Resistant Enterococci or Cancer Family History FAMILY HISTORY: Positive Family Respiratory Disorders; Negative Family Cardiac Disorders, Family Gastrointestinal Problems, Family Cancer or Family Anesthesia Reaction Surgical History SURGICAL: Positive Abdominal Surgery and Bowel Surgery; Negative Cardiac Surgery, Open Heart Surgery, Coronary Artery Bypass Graft, Valve Replacement, Vascular Surgery, Coronary Stent, Cardiac Catheterization, Pacemaker, Angiogram, Auto Implanted Cardiovert Defib, Carotid Endarterectomy, Endocrine Surgery, Ear Surgery, Nephrectomy, Joint Replacement or Neurologic Surgery Social History SMOKING STATUS: Never smoker SUBSTANCE USE: does not use Meds Home Medications and Allergies Home Medications ?Medication ?Instructions ?Recorded ?Confirmed ?Type ferrous sulfate 325 mg (65 mg 1 tab PO BID 10/17/21 03/16/24 History iron) tablet,delayed release mesalamine 1.2 gram tablet,delayed 1.2 g PO BID 03/16/24 03/16/24 History release Allergies Allergy/AdvReac Type Severity Reaction Status Date / Time ciprofloxacin Allergy Mild Rash Verified 12/27/24 11:23 Exam Vital Signs Temp Pulse Resp BP Pulse Ox O2 Del Method 97.9 F 77 15 112/66 100 Room Air 12/27/24 19:39 12/27/24 19:39 12/27/24 19:39 12/27/24 19:39 12/27/24 19:39 12/27/24 19:39 Narrative Exam Physical examination revealed thin built female who is 29 years old. He is 4 foot 11 inches tall weighing 117 pounds. Her vital signs are stable Routine Abdominal Exam Comments: Abdominal examination showed midline surgical scar from the previous expiratory laparotomy in 2017. Patient had no typical rigidity or peritoneal signs like guarding. Bowel sounds were present. Patient had some left lower quadrant tenderness Routine Rectal Exam Comments: Deferred Routine Exam Comments: Deferred Routine Extremities Exam Comments: Within normal limits Results Results: Laboratory Laboratory Narrative: Patient's laboratory workup is within normal limits Results: Imaging Imaging narrative: CT scan showed large pneumoperitoneum and some mediastinal air Assessment & Plan Additional Assessment Additional comments: Impression: Perforated viscus following colonoscopy History of ulcerative colitis Pneumomediastinum of unknown reason Plan Plan: Patient obviously has a perforation that requires surgical intervention. I made efforts to transfer the patient to [place] where Dr. Barajas has privileges. But unfortunately she failed to accept this patient telling that it is a surgical problem and should be handled by surgeon wherever emergency rooms she is. She also felt that they do not want to get involved in admitting in [place] and getting a surgeon and made very well going to take care of the problem here. I made repeated attempts to transfer the patient and asked them to accept the patient because of perforation was the result of the colonoscopy performed by them. But she refused and therefore I have no choice except taking the patient to see if he can seal the perforation. The procedure was explained to the patient in detail including possible resection of the bowel and even colostomy. Patient is agreeable and the procedure is planned tonight Quality Measures Quality Measures sepsis Current suspected stage: sepsis Possible source: GI tract/intra-abdominal Blood cultures ordered: no Antibiotic ordered: Yes and none
--- NOTE | 2024-12-27 21:44 | PC.NURSE ---
SURGEON DAVIS REQUESTING TO SPEAK TO RN OR SURGEON MELECIO PLEASE RETURN CALL [phone] OR [phone]
--- NOTE | 2024-12-27 22:07 | PD.SUROPNT ---
Date of Procedure 12/27/24 Pre Op Diagnosis Perforated viscus following a colonoscopy Post Op Diagnosis Same Procedure Explored laparotomy and lavage of the abdomen Findings No definite perforation was seen but there was a lot of retroperitoneal air in the left colon area Procedure Description After the patient was brought to the operating room endotracheal and she is given. Mancia catheter was inserted. Abdomen was prepped with ChloraPrep solution and draped in a sterile manner. Timeout was performed. Midline incision was made over the old surgical scar and abdominal cavity was entered. Patient was found to have no exudate or cloudy fluid. There was no foul-smelling drainage. There were few adhesions from the previous surgery. I performed some retroperitoneal air on the left side of the sigmoid colon but I still could not feel any definite perforation. I do not know whether it is sealed up or some minor perforation and is not showing up in the exploration. I checked to transverse colon which was distended. Right colon also appeared normal. At this time I did not have any reason to do any further exploration. I used extensive amount of saline solution to aspirate the peritoneal cavity. Then the wound was closed with an running 0 PDS for the fascia. I injected large amounts of Marcaine and the skin was closed with venkata and 4-0 nylon dressing was applied with 4 x 4 gauze. Patient tolerated the procedure well. Anesthesia GETA Pathology / specimen None Estimated Blood Loss 50 Surgeon Berto Willis MD Surgical Staff Operation Date: 12/27/24 21:15 Case Staff Anesthesiologist: Richard Weeks RNeducational manager: Mary Abbasi
--- NOTE | 2024-12-27 22:18 | SUR.PHASEI ---
[id number] Patient arrived to recovery resting comfortably in [facility], drowsy and able to response to verbal prompting, on oxygen 4L via nasal cannula, breathing unlabored, vital signs stable, denies pain and nausea, dressing intact to abdomen; venkata, adaptic, gauze, medipore tape, no bleeding noted, report received from Dr. Weeks and Hugo MCFARLANE
--- NOTE | 2024-12-27 22:52 | SUR.PHASEI ---
[id number] patient transported via gurney to room 360 without incident
[2024-12-28] VITALS (9 sets, daily range): BP systolic 84–109; BP diastolic 50–75; PULSE 63–100; RESP 14–98; TEMP 35.8–36.3; O2SAT 93–99
[2024-12-28] MEDS: MORPHINE SULF INJ 4 MG/ML VIAL IVP (05:14)
[2024-12-28 06:27] LABS: Basophils # (Auto) 0.0 Thou/mm3 (0.0-0.2); Basophils % (Auto) 0 % (0-2.5); Eosinophils # (Auto) 0.0 Thou/mm3 (0.0-0.5); Eosinophils % (Auto) 0 % (0-10); Hematocrit 30.4 % (36.0-46.0); Hemoglobin 10.2 g/dL (12.0-16.0); Immature Granulocytes Auto 0.05 Thou/mm3 (0.00-0.00); Lymphocytes # (Auto) 0.6 Thou/mm3 (1.0-4.8); Lymphocytes % (Auto) 5 % (10-50); Mean Corpuscular HGB Conc 33.6 g/dl (31.0-37.0); Mean Corpuscular Hemoglobin 28.3 pg (25.0-35.0); Mean Corpuscular Volume 84 fL (80-100); Monocytes # (Auto) 0.1 Thou/mm3 (0.0-0.8); Monocytes % (Auto) 1 % (0-12); Neutrophils # (Auto) 10.7 Thou/mm3 (1.8-7.7); Neutrophils % (Auto) 93 % (37-80); Nucleated Red Blood Cell # 0.00 Thou/mm3 (0.00-0.00); Nucleated Red Blood Cell % 0 /100 WBC (0); Platelet Count 272 Thou/mm3 (140-440); RDW Standard Deviation 42.7 fL (36.4-46.3); Red Blood Count 3.60 Miln/mm3 (4.00-5.20); White Blood Count 11.4 Thou/mm3 (3.6-11.0)
[2024-12-28] MEDS: SODIUM CHLORIDE 0.9% 1000 ML 1,000 ML 100 ML IV ×2 (06:40→21:25)
--- NOTE | 2024-12-28 08:16 | PC.NURSE ---
DR. MAJANO AT BEDSIDE ROUNDING ON PT, POC DISCUSSED, DON'T CHANGE DRESSING, VERBAL ORDERS GIVEN, READ BACK AND CARRIED OUT.
[2024-12-28] MEDS: HYDROcodone/APAP 5/325 TABLET 1 TAB PO ×3 (08:42→19:55)
--- NOTE | 2024-12-28 11:43 | PC.SS ---
Iesha Venegas is a 29-year-old female admitted to Med Surg for Perforated Viscus. SS conducted bedside contact with the patient to complete initial assessment and to discuss discharge planning. Role and reason explained. Patient confirmed demographic information. Patient identifies father Selwyn Loja [phone] as her surrogate decision maker. Pt states she is able to complete all ADL?s independently. No need for any source of DME. Pt PCP is Dr. Herman DAVIS. Pharmacy of choice is [facility]. Discharge options discussed and the pt wishes to return home.? Family will provide transportation upon DC. No further intervention required at this time, social work faculty member would be available to address any further concerns. DC Plan: Home Contact: Father Selwyn Address: Confirmed on face sheet PCP: RYAN
--- NOTE | 2024-12-28 12:25 | PC.NURSE ---
DR. MAJANO MADE AWARE OF PTS BP 85/57 MAP 66 (RIGHT UPPER ARM), HR 63, 84/50 MAP 61 (LEFT UPPER ARM), ASYMPTOMATIC, PT C/O MINIMAL PAIN. DR. MAJANO VORB: 500 ML BOLUS AND REASSESS VITAL SIGNS. ORDER RECEIVED READ BACK AND CARRIED OUT.
[2024-12-28] MEDS: SODIUM CHLORIDE 0.9% 500 ML 500 ML 999 ML IV (12:34)
--- NOTE | 2024-12-28 13:05 | PC.NURSE ---
PATIENT ALERT AND ORIENTED X4. VITAL SIGNS WNL DR. MAJANO AWARE. NO NEW ORDERS AT THIS TIME. WILL MONITOR VITAL SIGNS Q4H.
--- NOTE | 2024-12-28 17:25 | PD.SURPROG ---
Documentation for date of: 12/28/24 Subjective Subjective Brief History: History of present illness revealed the patient has history of ulcerative colitis for many years about 11 years. She has been treated in various places and she went to pss delivery professional in [place] yesterday and a colonoscopy was performed by Dr. Barajas and was discharged. Patient started having pain after the procedure and could not sleep last night. This morning she came to the emergency room and was found to have a free air under the diaphragm. She is describing the pain is 9 out of 10. She denies any history of nausea or vomiting. Patient has had a previous surgery following a colonoscopy back in 2017 for drainage of the intra-abdominal abscess. At that time she was told that the patient had perforation during colonoscopy by the surgeon who operated her here. Patient denies any other major medical problem. Narrative: The patient is feeling better after exploratory laparotomy for perforated viscus Exam Vital Signs Temp Pulse Resp BP Pulse Ox O2 Del Method O2 Flow Rate 96.9 F 70 18 95/75 99 Room Air 2 12/28/24 16:00 12/28/24 16:00 12/28/24 16:00 12/28/24 16:00 12/28/24 16:00 12/28/24 16:00 12/27/24 22:48 Her vital signs are very stable Routine Abdominal Exam Comments: Abdominal examination is negative Results Results: Laboratory Laboratory Narrative: Laboratory results show hypokalemia with potassium of 3.3 Assessment & Plan Assessment Additional comments: Pression: Stable postoperative course. Patient developed mild hypotension with a systolic around 80s and was given 500 cc of normal saline bolus the blood pressure is now in the 90s Plan Plan: We shall start potassium replacement with 40 mEq twice daily Keep her on clear liquids PROCEDURES: Procedures Explored laparotomy and lavage of the abdomen
[2024-12-29] VITALS (7 sets, daily range): BP systolic 103–110; BP diastolic 63–74; PULSE 88–96; RESP 17–98; TEMP 36.2–37.2; O2SAT 97–98
[2024-12-29] MEDS: MORPHINE SULF INJ 4 MG/ML VIAL IVP ×2 (00:21→05:36)
[2024-12-29 06:17] LABS: Basophils # (Auto) 0.0 Thou/mm3 (0.0-0.2); Basophils % (Auto) 0 % (0-2.5); Eosinophils # (Auto) 0.1 Thou/mm3 (0.0-0.5); Eosinophils % (Auto) 1 % (0-10); Hematocrit 28.0 % (36.0-46.0); Hemoglobin 8.9 g/dL (12.0-16.0); Immature Granulocytes Auto 0.04 Thou/mm3 (0.00-0.00); Lymphocytes # (Auto) 1.7 Thou/mm3 (1.0-4.8); Lymphocytes % (Auto) 14 % (10-50); Mean Corpuscular HGB Conc 31.8 g/dl (31.0-37.0); Mean Corpuscular Hemoglobin 27.6 pg (25.0-35.0); Mean Corpuscular Volume 87 fL (80-100); Monocytes # (Auto) 0.9 Thou/mm3 (0.0-0.8); Monocytes % (Auto) 7 % (0-12); Neutrophils # (Auto) 9.3 Thou/mm3 (1.8-7.7); Neutrophils % (Auto) 78 % (37-80); Nucleated Red Blood Cell # 0.00 Thou/mm3 (0.00-0.00); Nucleated Red Blood Cell % 0 /100 WBC (0); Platelet Count 233 Thou/mm3 (140-440); RDW Standard Deviation 45.6 fL (36.4-46.3); Red Blood Count 3.22 Miln/mm3 (4.00-5.20); White Blood Count 12.0 Thou/mm3 (3.6-11.0)
[2024-12-29] MEDS: SODIUM CHLORIDE 0.9% 1000 ML 1,000 ML 100 ML IV (06:30)
[2024-12-29 06:39] LABS: Anion Gap 10 (7-16); Carbon Dioxide 23.2 mMol/L (20.0-31.0); Chloride 110 mMol/L (98-107); Potassium 4.0 mMol/L (3.4-5.1); Sodium 143 mMol/L (136-145)
[2024-12-29] MEDS: HYDROcodone/APAP 5/325 TABLET 1 TAB PO (10:36)
--- NOTE | 2024-12-29 13:33 | PD.SURPROG ---
Documentation for date of: 12/29/24 Subjective Subjective Brief History: History of present illness revealed the patient has history of ulcerative colitis for many years about 11 years. 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 Barajas and was discharged. Patient started having pain after the procedure and could not sleep last night. This morning she came to the emergency room and was found to have a free air under the diaphragm. She is describing the pain is 9 out of 10. She denies any history of nausea or vomiting. Patient has had a previous surgery following a colonoscopy back in 2017 for drainage of the intra-abdominal abscess. At that time she was told that the patient had perforation during colonoscopy by the surgeon who operated her here. Patient denies any other major medical problem. Narrative: The patient is doing well and has had bowel movements Exam Vital Signs Temp Pulse Resp BP Pulse Ox O2 Del Method O2 Flow Rate 97.2 F 96 18 104/65 98 Room Air 2 12/29/24 12:00 12/29/24 12:00 12/29/24 12:00 12/29/24 12:00 12/29/24 12:00 12/29/24 12:00 12/29/24 04:00 Her vital signs are normal other than mild tachycardia Routine Abdominal Exam Comments: Abdominal examination is negative Results Results: Laboratory Laboratory Narrative: Labs are within normal limits Assessment & Plan Assessment Additional comments: Impression: Stable postoperative course after exploratory laparotomy Plan Plan: We shall advance her diet and if tolerated will discharge her today PROCEDURES: Procedures Explored laparotomy and lavage of the abdomen
--- NOTE | 2024-12-29 13:39 | PC.NURSE ---
DR. MAJANO AT BEDSIDE, REMOVED DRESSING, CAMILLE WEI, WOUND AFTER CARE DISCUSSED PT VERBALIZE UNDERSTANDING.
--- NOTE | 2024-12-31 09:09 | ESDS_ITS ---
RE: [facility] : 1995 DATE OF ADMISSION: 12/27/2024 DATE OF DISCHARGE: 12/29/2024 19:31 DATE OF ADMISSION: 12/27/2024 DATE OF DISCHARGE: 12/29/2024 HOSPITAL COURSE: This patient is a 29-year-old female who was seen because of abdominal pain following colonoscopy the day before. The patient underwent colonoscopy the day before in [place] and ended up with abdominal pain here. She was found to have a large pneumoperitoneum, so diagnosis of possible perforation of the colon was made and she was, therefore, taken to the operating room. She underwent exploration and was found to have no significant tear in the colon. The patient did have some retroperitoneal air. The patient has a history of ulcerative colitis. After the surgery, the patient had an uneventful course and was discharged on the 2nd postoperative day. She was tolerating diet and she was given Vicodin for pain and she was advised to continue her ulcerative colitis medications in [place]. DT: 08:53:02 TT: 09:08:00 Ref: [id number] - TID: [id number]
== END 2024-12-29 19:31 | disposition home or self-care (01) | DRG 793 ==
LOC: SERX 12:53 → SERHOLD 19:36 → S3NX 12-28 06:28
PROVIDERS: Nurse Practitioner Primary Care; Admitting Provider Surgery; Emergency Provider Emergency Medicine; PCP Family Medicine; Visit Provider Surgery
PROC: 0DJ60ZZ Inspection of Stomach, Open Approach (ICD-10-PCS; CPT 49000; principal; 2024-12-27 21:00)
DX: K91.71 Accidental puncture and laceration of a digestive system organ or structure during a digestive system procedure (principal); K51.90 Ulcerative colitis, unspecified, without complications; I95.9 Hypotension, unspecified; J98.2 Interstitial emphysema; K63.1 Perforation of intestine (nontraumatic); Z88.1 Allergy status to other antibiotic agents
CPT/HCPCS: 36415; 74176; 80051; 80053; 81001; 81025; 83690; 84484; 85025; 93005; 96361; 96365; 96375; 99283; A4649; J0131; J1100; J1171; J2270; J2371; J2405; J2543; J2704; J3010; J3490; J7030; J7120; J7999; A9270